=== PATIENT | female | born 1960 | race African-American/Black ===

== ENCOUNTER 2016-07-23 17:52 | Emergency (ER) | payer MEDICAID ==
[~2016-07-23] VITALS: Ht 162.6 cm; Wt 63.0 kg
[~2016-07-23 17:52] MED LIST: DIAZ5TAB PO; INSULIN SHOT; NAPR220T70 PO; blood pressure med; diabetes med
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
[2016-07-23] MEDS ORDERED: HYDROCODON/IBUPROFEN 7.5/200MG TABLET. PO ONE (18:30)
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
[2016-07-23] MEDS ORDERED: MAGNESIUM HYDROXIDE 2,400 MG/30 ML ORAL.SUSP. PO ONE (19:45)
[2016-07-23] MEDS ORDERED: HYDR-79 PO (19:53)
[2016-07-23] MEDS ORDERED: CYCL5TAB PO (19:53)
[2016-07-23 20:10] VITALS: BP 154/98
[2016-07-23] MEDS ORDERED: DIPHENHYDRAMINE HCL 25 MG CAPSULE PO ONE (20:15)
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
== END 2016-07-23 20:10 | disposition home or self-care (01) ==
LOC: ER 17:52
DX: S46.001A Unspecified injury of muscle(s) and tendon(s) of the rotator cuff of right shoulder, initial encounter (principal); M62.838 Other muscle spasm; E04.1 Nontoxic single thyroid nodule; I10 Essential (primary) hypertension; E11.9 Type 2 diabetes mellitus without complications; M19.90 Unspecified osteoarthritis, unspecified site; M79.7 Fibromyalgia; V49.9XXA Car occupant (driver) (passenger) injured in unspecified traffic accident, initial encounter; Y93.89 Activity, other specified; Y99.8 Other external cause status; Y92.89 Other specified places as the place of occurrence of the external cause
CPT/HCPCS: 71020; 72125; 73030; 74020; 99284; Q0163

== ENCOUNTER 2017-01-20 00:02 | Inpatient (IN) | payer SELFPAY ==
[~2017-01-20] VITALS: Ht 163.8 cm; Wt 63.0 kg
[~2017-01-20 00:02] MED LIST changes: +CYCL5TAB PO; +HYDR-79 PO
[2017-01-20] MEDS ORDERED: ADENOSINE 6 MG/2 ML VIAL IV ONE ×2 (00:45)
--- NOTE | 2017-01-20 00:45 | PHYS DOC ---
Past History Past Medical History: Arthritis, Diabetes, Hypertension Past Surgical History: Tubal ligation, Other Alcohol Use: Occasionally Drug Use: None Adult General Chief Complaint Chief Complaint: CHEST PAIN HPI HPI Patient is a 57 year old F who presents with chest pain and rapid heart rate. Patient states approximately 2 hours ago her heart rate increased and she's developed chest pain. Patient denies any cardiac history such as bypass or stents. Patient does states she has hypertension and diabetes however is noncompliant with her medication secondary to financial issues. Patient has history of smoking but states she does not currently smoke. Patient denies any fevers. Patient denies any nausea/vomiting/diarrhea. Patient is no other complaints. Review of Systems Review of Systems GEN: Denies fevers, chills, sweats HEENT: Denies blurred vision, sore throat CV: Chest pain and elevated heart rate RESP: Denies shortness of air, cough GI: Denies n/v/d NEURO: Denies confusion, dizziness MSK: Denies weakness, joint pain/swelling Allergies Allergies Allergies Coded Allergies Type Severity Reaction Last Updated Verified No Known Drug Allergies 11/23/15 No Physical Exam Physical Exam GEN.: Moderate distress. Alert and oriented. HEENT: Head is normocephalic, atraumatic NECK: Supple. LUNGS: CTAB. HEART: Tachycardia, S1, S2 present. Peripheral pulses intact ABDOMEN: Soft, nontender. Positive bowel sounds. EXTREMITIES: Without any cyanosis. NEUROLOGIC: Normal speech, normal tone PSYCHIATRIC: Normal affect, normal mood. SKIN: No ulcerations Current Patient Data Vital Signs Laboratory Tests Test 01/20/17 00:45 01/20/17 02:00 White Blood Count 7.8 x10^3/uL Red Blood Count 5.09 x10^6/uL Hemoglobin 14.5 g/dL Hematocrit 42.6 % Mean Corpuscular Volume 84 fL Mean Corpuscular Hemoglobin 28 pg Mean Corpuscular Hemoglobin Concent 34 g/dL Red Cell Distribution Width 13.5 % Platelet Count 251 x10^3/uL Neutrophils (%) (Auto) 52 % Lymphocytes (%) (Auto) 40 % Monocytes (%) (Auto) 6 % Eosinophils (%) (Auto) 1 % Basophils (%) (Auto) 0 % Neutrophils # (Auto) 4.1 x10^3uL Lymphocytes # (Auto) 3.1 x10^3/uL Monocytes # (Auto) 0.5 x10^3/uL Eosinophils # (Auto) 0.1 x10^3/uL Basophils # (Auto) 0.0 x10^3/uL Sodium Level 137 mmol/L Potassium Level 3.7 mmol/L Chloride Level 99 mmol/L Carbon Dioxide Level 27 mmol/L Anion Gap 11 Blood Urea Nitrogen 13 mg/dL Creatinine 0.8 mg/dL Estimated GFR (Cockcroft-Gault) 89.8 BUN/Creatinine Ratio 16 Glucose Level 399 mg/dL Calcium Level 9.8 mg/dL Total Bilirubin 0.3 mg/dL Aspartate Amino Transf (AST/SGOT) 21 U/L Alanine Aminotransferase (ALT/SGPT) 26 U/L Alkaline Phosphatase 105 U/L Troponin I Quantitative 0.022 ng/mL Total Protein 7.5 g/dL Albumin 3.9 g/dL Albumin/Globulin Ratio 1.1 Urine Collection Type Unknown Urine Color Yellow Urine Clarity Clear Urine pH 7.0 Urine Specific [employer] 1.015 Urine Protein Neg Urine Glucose (UA) >=1000 mg/dL Urine Ketones (Stick) Neg mg/dL Urine Blood Neg Urine Nitrite Neg Urine Bilirubin Neg Urine Urobilinogen Dipstick 0.2 mg/dL Urine Leukocyte Esterase Neg Urine RBC 0 /HPF Urine WBC Occ /HPF Urine Squamous Epithelial Cells Occ /LPF Urine Bacteria 0 /HPF Urine Opiates Screen Neg Urine Methadone Screen Neg Urine Barbiturates Neg Urine Phencyclidine Screen Neg Urine Amphetamine/Methamphetamine Neg Urine Benzodiazepines Screen Neg Urine Cocaine Screen Neg Urine Cannabinoids Screen Neg Urine Ethyl Alcohol Neg Current Medications Medications (Trade) Dose Ordered Sig/Jorden Route PRN Reason Start Time Stop Time Status Last Admin Dose Admin Adenosine (Adenocard) 6 mg 1X ONCE IV 01/20/17 00:45 01/20/17 00:46 DC Adenosine (Adenocard) 12 mg 1X ONCE IV 01/20/17 00:45 01/20/17 00:46 DC EKG EKG 0032: EKG shows SVT rate of 174 no STEMI 0107: Repeat EKG shows normal sinus rhythm rate of 93 no STEMI[] Radiology/Procedures Radiology/Procedures Chest x-ray NAD[] Course & Med Decision Making Course & Med Decision Making Pertinent Labs and Imaging studies reviewed. (See chart for details) ED course: Patient was seen and examined emergency room cardiac workup was ordered along with adenosine to convert as CT 0100: I had patient vagal down in which she spontaneously converted into normal sinus rhythm and a repeat EKG was done. 0230: Patient was reevaluated and still complaining of left-sided chest pain 0245: Discussed CC/HP/PMH with Dr. Almazan and recommends admit [] MDM: After reviewing the chart, CC/HPI/PMH, physical exam, [lab results], [ radiological results], I do not believe the patient is having a STEMI, PE ( Wells score 0), and low suspicion for acute thoracic aortic dissection. Given the patient's cardiac risk factors and persistent left-sided chest pain we'll make the patient for further evaluation and management. [] Dragon Disclaimer Dragon Disclaimer This chart was dictated in whole or in part using Voice Recognition software in a busy, high-work load, and often noisy Emergency Department environment. It may contain unintended and wholly unrecognized errors or omissions. Departure Departure: Impression: Primary Impression: SVT (supraventricular tachycardia) Additional Impressions: Chest pain Hyperglycemia Disposition: 09 ADMITTED INPATIENT Admitting Physician: Citlaly Almazan Condition: STABLE Referrals: PCP,NO (PCP) Problem Qualifiers JAIMIE NEVES DO Jan 20, 2017 00:45
[2017-01-20 01:12] LABS: BASO % 0 % (0-3); EOS # 0.1 x10^3/uL (0.0-0.7); EOS % 1 % (0-3); HEMATOCRIT 42.6 % (36.0-47.0); HEMOGLOBIN 14.5 g/dL (12.0-15.5); LYMPH # 3.1 x10^3/uL (1.0-4.8); LYMPH % 40 % (24-48); MEAN CORPUSCULAR HEMOGLOBIN 28 pg (25-35); MEAN CORPUSCULAR HGB CONC 34 g/dL (31-37); MEAN CORPUSCULAR VOLUME 84 fL (79-100); MONO # 0.5 x10^3/uL (0.0-1.1); MONO % 6 % (0-9); NEUT # 4.1 x10^3uL (1.8-7.7); NEUT % 52 % (31-73); PLATELET COUNT 251 x10^3/uL (140-400); RED BLOOD COUNT 5.09 x10^6/uL (3.50-5.40); RED CELL DISTRIBUTION WIDTH 13.5 % (11.5-14.5); WHITE BLOOD COUNT 7.8 x10^3/uL (4.0-11.0)
[2017-01-20 01:20] LABS: ALBUMIN 3.9 g/dL (3.4-5.0); ALBUMIN/GLOBULIN RATIO 1.1 (1.0-1.7); CALCIUM 9.8 mg/dL (8.5-10.1); CREATININE 0.8 mg/dL (0.6-1.0); GFR 89.8; POTASSIUM 3.7 mmol/L (3.5-5.1); TOTAL BILIRUBIN 0.3 mg/dL (0.2-1.0); TOTAL PROTEIN 7.5 g/dL (6.4-8.2)
[2017-01-20 02:27] LABS: BACTERIA,URINE 0 /HPF (0-FEW); BARBITURATES NEG (NEG); BENZODIAZEPINES NEG (NEG); BILIRUBIN,URINE NEG (NEG); CANNABINOIDS NEG (NEG); CLARITY,URINE CLEAR; COCAINE NEG (NEG); COLOR,URINE YELLOW; GLUCOSE,URINE >=1000 mg/dL (NEG); METHADONE NEG (NEG); NITRITE,URINE NEG (NEG); OPIATES NEG (NEG); PHENCYCLIDINE NEG (NEG); RBC,URINE 0 /HPF (0-2); SQUAMOUS EPITHELIAL CELL,UR OCC /LPF; UROBILINOGEN,URINE 0.2 mg/dL (0.2 mg/dL); WBC,URINE OCC /HPF (0-4)
[2017-01-20 02:28] LABS: AMPHETAMINE/METHAMPHETAMINE NEG (NEG)
[2017-01-20] MEDS ORDERED: MORPHINE SULFATE 4 MG/ML DISP.SYRIN. IV PRN (02:45)
[2017-01-20] MEDS ORDERED: NITROGLYCERIN SUBLINGUAL 0.4 MG BOTTLE OF 25. SL PRN (02:45)
[2017-01-20] MEDS ORDERED: ONDANSETRON PF 4 MG/2 ML VIAL. IV PRN (02:45)
[2017-01-20] MEDS ORDERED: ACETAMINOPHEN 325 MG TABLET PO PRN (02:45)
[2017-01-20 03:48] VITALS: BP 131/90
[2017-01-20 03:49] VITALS: BP 131/90
[2017-01-20] MEDS ORDERED: ASPIRIN 81 MG TAB.CHEW PO ONE (06:00)
[2017-01-20] MEDS ORDERED: PNEUMOCOCCAL VAX SCREEN. MC PRN (06:45)
[2017-01-20] MEDS ORDERED: Influenza vaccine per PROTOCOL. MC PRN (06:45)
--- NOTE | 2017-01-20 07:46 | RAD ---
Indication chest pain. A single view of the chest was obtained. Comparison is made to a study 07/23/2016. The heart and pulmonary vessels appear normal. The lungs are clear. There has not been a significant change when compared to the previous exam. IMPRESSION: No acute or focal process. No significant change
[2017-01-20] MEDS ORDERED: MORPHINE SULFATE 20 MG/ML CONC SOLUTION. SL PRN (08:15)
[2017-01-20] MEDS ORDERED: LORazepam INTENSOL 2 MG/ML BOTTLE SL PRN (08:15)
[2017-01-20] MEDS ORDERED: SCOPOLAMINE 1.5MG PATCH. TD SCH (08:15)
[2017-01-20] MEDS ORDERED: FLU VACC QS2017-18 (36MOS+)/PF 0.5 ML SYRINGE. VAX IM ONE (09:00)
[2017-01-20] MEDS ORDERED: PNEUMOC CONJ VACC 23-VALENT 0.5 ML VIAL. VAX IM ONE (09:00)
[2017-01-20] MEDS ORDERED: DEXTROSE 50% 25 GM / 50ML DISP.SYRIN. IV PRN (09:15)
[2017-01-20] MEDS ORDERED: INSULIN ASPART 300 UNITS/3 ML INSULN.PEN SQ ONE (09:30)
--- NOTE | 2017-01-20 09:38 | PDOC2 ---
LYLANAVEED Khushi MUTUEL TELLER 01/20/17 0938: CONSULT Date of Admission DATE: 01/20/17 TIME: 09:33 Reason for Consult: SVT, Elevated trop Problem List Problems Medical Problems: (1) Chest pain Status: Acute (2) Hyperglycemia Status: Acute (3) SVT (supraventricular tachycardia) Status: Acute History of Present Illness Ms Muñoz is a 57 year old female with a history of hypertension and diabetes mellitus. She presents with complaints of palpitations and heart racing that started while she was eating dinner last pm. She reports sudden onset of rapid heart rate with associated chest pressure and dyspnea. She drank some cold water and lay down with out effect. She says she then began to have lightheadedness and nausea in addition to her other symptoms so decided to seek treatment. On arrival she was noted to be in SVT with heart rate in the 170's. She was given adenosine which successfully converted her to sinus rhythm. She has remained in sinus rhythm since that time. She denies any prior episodes of palpitations or history of arrhythmias. She reports progressive fatigue and dyspnea on exertion over the last year. She is able to climb one flight of stairs with significant fatigue and dyspnea when she is finished. She says this has gotten worse over the last one year. She denies exertional chest pain. She does report an episode of chest pain with radiation to her arm and back about 2 weeks ago. She reports this was increased with lifting or bending over and lasted most of the day. She denies congestive symptoms or edema. She denies any syncope. She takes medications for hypertension but is unsure what the medication is. Her daughter is going to bring her medications in. Cardiovascular: HTN CENTRAL NERVOUS SYSTEM: Periperal neuropathy GI: GI bleed Musculoskeletal: Other Rheumatologic: Rheumatoid arthritis Renal/: Other (fibroids) Endocrine: Diabetes Past Surgical History: Tubal Ligation, Other (fatty tumor removal) Family History: Cancer, Diabetes, Hypertension Social History remote history of tobacco use, drinks 1-2 beers daily, no illicit drug use Current Medications Current Medications Adenosine (Adenocard) 6 mg 1X ONCE IV ; Start 01/20/17 at 00:45; Stop at 00:46; Status DC Adenosine (Adenocard) 12 mg 1X ONCE IV ; Start 01/20/17 at 00:45; Stop at 00:46; Status DC Ondansetron HCl (Zofran) 4 mg PRN Q4HRS PRN IV NAUSEA/VOMITING; Start at 02:45; Stop 01/21/17 at 02:44 Morphine Sulfate (Morphine 4mg Syringe) 4 mg PRN Q2HR PRN IV PAIN; Start 01/20 at 02:45; Stop 01/21/17 at 02:44 Acetaminophen (Tylenol) 650 mg PRN Q4HRS PRN PO FEVER; Start 01/20/17 at 02:45 ; Stop 01/21/17 at 02:44 Nitroglycerin (Nitrostat) 0.4 mg PRN Q5MIN PRN SL CHEST PAIN; Start 01/20/17 at 02:45; Stop 01/21/17 at 02:44 Aspirin (Children'S Aspirin) 324 mg 1X ONCE PO Last administered on t 06:02; Start 01/20/17 at 06:00; Stop 01/20/17 at 06:01; Status DC Pneumococcal Polyvalent Vaccine (Pneumovax 23) 0.5 ml ONCE ONCE VAX IM ; Start 01/20/17 at 09:00; Stop 01/20/17 at 09:01; Status DC Influenza Virus Vaccine Quadrival (Fluarix Quad [id number] Syringe) 0.5 ml ONCE ONCE VAX IM ; Start 01/20/17 at 09:00; Stop 01/20/17 at 09:01; Status DC Info (FLU VACCINE per PROTOCOL) 1 ea PRN 1X PRN MC PER PROTOCOL; Start at 06:45; Status Cancel Pneumococcal Polyvalent Vaccine (Do NOT chart on this entry -- for MONITORING) 1 each PRN 1X PRN MC SEE COMMENTS; Start 01/20/17 at 06:45; Status Cancel Lorazepam (Ativan Intensol) 1 mg PRN Q6HRS PRN SL ANXIETY / AGITATION; Start 01/20/17 at 08:15; Status UNV Morphine Sulfate (Roxanol Conc) 4 mg PRN Q3HRS PRN SL PAIN; Start 01/20/17 at 08:15; Status UNV Scopolamine (Transderm-Scop) 1 patch Q3DAYS TD ; Start 01/20/17 at 08:15; Status UNV Insulin Aspart (NovoLOG) 0-5 UNITS QIDACHS SQ ; Start 01/20/17 at 11:30 Dextrose 12.5 gm PRN Q15MIN PRN IV SEE COMMENTS; Start 01/20/17 at 09:15 Insulin Aspart (NovoLOG) 4 units 1X ONCE SQ ; Start 01/20/17 at 09:30; Stop 01/20/17 at 09:31; Status DC Active Scripts Active Cyclobenzaprine Hcl 5 Mg Tablet 5 Mg PO TID PRN PRN Hydrocodone-Ibuprofen 7.5-200 (Hydrocodone/Ibuprofen) 1 Each Tablet 1 Tab PO PRN Q6HRS PRN Valium (Diazepam) 5 Mg Tablet 5 Mg PO Q12HR PRN Reported Aleve (Naproxen Sodium) 220 Mg Tablet 220 Mg PO [diabetes med] Unknown Dose [insulin shot] Unknown Dose [blood pressure med] Allergies: Coded Allergies: No Known Drug Allergies (Unverified , 11/23/15) Review of System as per HPI or negative General: Alert, Oriented X3, Cooperative, No acute distress HEENT: Atraumatic, EOMI, Other (no bruits, thyroid enlargement) Lungs: Clear to auscultation, Normal air movement Heart: Regular rate, Normal S1, Normal S2, Other (no significant murmurs, no gallops, clicks or rubs) Abdomen: Normal bowel sounds, Soft, No tenderness Extremities: No clubbing, No cyanosis, No edema, Normal pulses Neuro: Normal speech, Strength at 5/5 X4 ext Psych/Mental Status: Mental status NL VITALS Vital Signs Date Time Temp Pulse Resp B/P (MAP) Pulse Ox O2 Delivery O2 Flow Rate FiO2 01/20/17 07:15 Room Air 01/20/17 03:49 98.5 83 18 131/90 (104) 98 Labs Laboratory Tests Test 01/20/17 00:45 01/20/17 02:00 01/20/17 07:11 01/20/17 07:32 White Blood Count 7.8 x10^3/uL (4.0-11.0) Red Blood Count 5.09 x10^6/uL (3.50-5.40) Hemoglobin 14.5 g/dL (12.0-15.5) Hematocrit 42.6 % (36.0-47.0) Mean Corpuscular Volume 84 fL (79-100) Mean Corpuscular Hemoglobin 28 pg (25-35) Mean Corpuscular Hemoglobin Concent 34 g/dL (31-37) Red Cell Distribution Width 13.5 % (11.5-14.5) Platelet Count 251 x10^3/uL (140-400) Neutrophils (%) (Auto) 52 % (31-73) Lymphocytes (%) (Auto) 40 % (24-48) Monocytes (%) (Auto) 6 % (0-9) Eosinophils (%) (Auto) 1 % (0-3) Basophils (%) (Auto) 0 % (0-3) Neutrophils # (Auto) 4.1 x10^3uL (1.8-7.7) Lymphocytes # (Auto) 3.1 x10^3/uL (1.0-4.8) Monocytes # (Auto) 0.5 x10^3/uL (0.0-1.1) Eosinophils # (Auto) 0.1 x10^3/uL (0.0-0.7) Basophils # (Auto) 0.0 x10^3/uL (0.0-0.2) Sodium Level 137 mmol/L (136-145) Potassium Level 3.7 mmol/L (3.5-5.1) Chloride Level 99 mmol/L (98-107) Carbon Dioxide Level 27 mmol/L (21-32) Anion Gap 11 (6-14) Blood Urea Nitrogen 13 mg/dL (7-20) Creatinine 0.8 mg/dL (0.6-1.0) Estimated GFR (Cockcroft-Gault) 89.8 BUN/Creatinine Ratio 16 (6-20) Glucose Level 399 mg/dL (70-99) Calcium Level 9.8 mg/dL (8.5-10.1) Total Bilirubin 0.3 mg/dL (0.2-1.0) Aspartate Amino Transf (AST/SGOT) 21 U/L (15-37) Alanine Aminotransferase (ALT/SGPT) 26 U/L (14-59) Alkaline Phosphatase 105 U/L (46-116) Troponin I Quantitative 0.022 ng/mL (0-0.055) 0.099 ng/mL (0-0.055) Total Protein 7.5 g/dL (6.4-8.2) Albumin 3.9 g/dL (3.4-5.0) Albumin/Globulin Ratio 1.1 (1.0-1.7) Urine Collection Type Unknown Urine Color Yellow Urine Clarity Clear Urine pH 7.0 Urine Specific [place] 1.015 Urine Protein Neg (NEG-TRACE) Urine Glucose (UA) >=1000 mg/dL (NEG) Urine Ketones (Stick) Neg mg/dL (NEG) Urine Blood Neg (NEG) Urine Nitrite Neg (NEG) Urine Bilirubin Neg (NEG) Urine Urobilinogen Dipstick 0.2 mg/dL (0.2 mg/dL) Urine Leukocyte Esterase Neg (NEG) Urine RBC 0 /HPF (0-2) Urine WBC Occ /HPF (0-4) Urine Squamous Epithelial Cells Occ /LPF Urine Bacteria 0 /HPF (0-FEW) Urine Opiates Screen Neg (NEG) Urine Methadone Screen Neg (NEG) Urine Barbiturates Neg (NEG) Urine Phencyclidine Screen Neg (NEG) Urine Amphetamine/Methamphetamine Neg (NEG) Urine Benzodiazepines Screen Neg (NEG) Urine Cocaine Screen Neg (NEG) Urine Cannabinoids Screen Neg (NEG) Urine Ethyl Alcohol Neg (NEG) Glucose (Fingerstick) 266 mg/dL (70-99) Images EKG SVT / AVNRT EKG sinus rhythm, ASMI age undetermined, non specific st/t abn Assessment/Plan 1. 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 Suggest beta blockers for rhythm and HTN control. 2. elevated trop - likely secondary to #1. Monitor for any further increase. 3. abnormal EKG - no acute ischemic changes. 4. progressive fatigue and decreased functional capacity - ? anginal equivalent. In light of this and risk factors, will plan for MPI in am. 5. hypertension - controlled currently. Await home medication list and adjust appropriately in light of #1. 6. diabetes mellitus - mgmt per PCP Problems: KIKO RAYMOND MD 01/20/17 1530: CONSULT Allergies: Coded Allergies: No Known Drug Allergies (Unverified , 11/23/15) Assessment/Plan Patient seen and examined Episode of tachycardia. Probable SVT. Will continue on telemetry and consider beta blockers. Elevated troponin. Probably secondary to demand ischemia secondary to tachyarrhythmias. However the patient also has a mildly abnormal EKG. She reports symptoms of progressive fatigue. Patient has risk factors for hypertension and diabetes. Proceed with present treatments and check a stress test in the morning. Hypertension. Adjusting medications as needed. Diabetes mellitus. As per the primary service. Thank you for allowing us to participate in the care of your patient. Problems: NAVEED ARITA APRN Jan 20, 2017 09:38 KIKO RAYMOND MD Jan 20, 2017 15:30
--- NOTE | 2017-01-20 09:54 | EKG ---
[facility] [address] [place] [address] Test Date: 2017-01-20 Test Time: 00:32:41 Pat Name: CLAUS BLACKMAN Department: Room: Gender: F Territory Supervisor: : 1960 Requested By: JAIMIE NEVES Order Number: [id number] Reading MD: Measurements Intervals [place] Rate: P: [place]: QRS: QRSD: T: QT: QTc: Interpretive Statements
--- NOTE | 2017-01-20 09:56 | EKG ---
[facility] [address] [place] [address] Test Date: 2017-01-20 Test Time: 01:07:40 Pat Name: CLAUS BLACKMAN Department: Room: Gender: F Professor Of Surgery: : 1960 Requested By: JAIMIE NEVES Order Number: [id number] Reading MD: Measurements Intervals [place] Rate: P: [place]: QRS: QRSD: T: QT: QTc: Interpretive Statements
[2017-01-20 10:49] VITALS: BP 115/80
[2017-01-20] MEDS: INSULIN ASPART 300 UNITS/3 ML INSULN.PEN SQ SCH ×3 (12:03→20:16)
[2017-01-20] MEDS ORDERED: ATOR10TA60 PO (13:32)
[2017-01-20] MEDS ORDERED: GABA-585 PO (13:32)
[2017-01-20] MEDS ORDERED: AMLO5TAB2 PO (13:32)
[2017-01-20] MEDS ORDERED: LISI1TAB7 PO (13:33)
[2017-01-20] MEDS ORDERED: METF10002 PO (13:33)
[2017-01-20] MEDS ORDERED: ASPI-630 PO (13:33)
[2017-01-20] MEDS ORDERED: MULT1TAB52 PO (13:34)
[2017-01-20] MEDS ORDERED: ASCO500C PO (13:34)
[2017-01-20] MEDS: ASCORBIC ACID 500 MG TABLET PO SCH (14:11)
[2017-01-20] MEDS: ATORVASTATIN CALCIUM 10 MG TABLET. PO SCH (14:11)
[2017-01-20] MEDS: hydroCHLOROthiazide 25 MG TABLET PO SCH (14:11)
[2017-01-20] MEDS: amLODIPine BESYLATE 5 MG TABLET PO SCH (14:11)
[2017-01-20] MEDS: ASPIRIN 81 MG TAB.CHEW PO SCH (14:11)
[2017-01-20] MEDS: LISINOPRIL 20 MG TABLET PO SCH (14:11)
[2017-01-20] MEDS: MULTIVITAMIN with MINERAL TABLET. PO SCH (14:11)
[2017-01-20] MEDS: GABAPENTIN 100 MG CAPSULE. PO SCH ×2 (14:11→20:10)
[2017-01-20] MEDS: metFORMIN 500 MG TABLET PO SCH (17:41)
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
[2017-01-20 19:13] VITALS: BP 105/72
[2017-01-20 22:59] VITALS: BP 106/73
[2017-01-21 00:10] LABS: HEMOGLOBIN A1C 12.3 % (4.8-5.6)
[2017-01-21 05:35] VITALS: BP 114/79
[2017-01-21 06:09] LABS: BASO % 1 % (0-3); EOS # 0.1 x10^3/uL (0.0-0.7); EOS % 2 % (0-3); HEMATOCRIT 43.7 % (36.0-47.0); HEMOGLOBIN 14.8 g/dL (12.0-15.5); LYMPH # 2.3 x10^3/uL (1.0-4.8); LYMPH % 36 % (24-48); MEAN CORPUSCULAR HEMOGLOBIN 29 pg (25-35); MEAN CORPUSCULAR HGB CONC 34 g/dL (31-37); MEAN CORPUSCULAR VOLUME 84 fL (79-100); MONO # 0.4 x10^3/uL (0.0-1.1); MONO % 6 % (0-9); NEUT # 3.5 x10^3uL (1.8-7.7); NEUT % 55 % (31-73); PLATELET COUNT 228 x10^3/uL (140-400); RED BLOOD COUNT 5.18 x10^6/uL (3.50-5.40); RED CELL DISTRIBUTION WIDTH 13.7 % (11.5-14.5); WHITE BLOOD COUNT 6.3 x10^3/uL (4.0-11.0)
[2017-01-21 06:10] LABS: CALCIUM 9.4 mg/dL (8.5-10.1); CREATININE 0.7 mg/dL (0.6-1.0); GFR 104.7; POTASSIUM 4.1 mmol/L (3.5-5.1)
[2017-01-21] MEDS: INSULIN ASPART 300 UNITS/3 ML INSULN.PEN SQ SCH ×2 (07:30→10:16)
[2017-01-21] MEDS ORDERED: REGADENOSON 0.4 MG/5 ML DISP.SYRIN. IV ONE (09:00)
--- NOTE | 2017-01-21 09:30 | PDOC ---
PROGRESS NOTES Diagnosis Problem Problems Medical Problems: (1) Chest pain Status: Acute (2) Hyperglycemia Status: Acute (3) SVT (supraventricular tachycardia) Status: Acute Assessment Problems Medical Problems: (1) Chest pain Status: Acute (2) Hyperglycemia Status: Acute (3) SVT (supraventricular tachycardia) Status: Acute 1. 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 Suggest home monitor 2. elevated trop - likely secondary to #1. No further increase. 3. abnormal EKG - no acute ischemic changes. 4. progressive fatigue and decreased functional capacity - ? anginal equivalent. MPI today. 5. hypertension - controlled. 6. diabetes mellitus - mgmt per PCP Problems: Subjective no new complaints. no chest pain. no dyspnea. Objective Vital Signs Date Time Temp Pulse Resp B/P (MAP) Pulse Ox O2 Delivery O2 Flow Rate FiO2 01/21/17 05:35 98.7 72 18 114/79 (91) 98 Room Air Abdomen: Normal bowel sounds, Soft, No tenderness Heart: Regular rate, Normal S1, Normal S2 Extremities: No clubbing, No edema, Normal pulses General: Alert, Oriented X3, Cooperative, No acute distress Lungs: Clear to auscultation, Normal air movement Neuro: Normal speech, Strength at 5/5 X4 ext Psych/Mental Status: Mental status NL, Mood NL Review of Relevant I have reviewed the following items theodora (where applicable) has been applied. Labs Laboratory Tests Test 01/20/17 00:45 01/20/17 02:00 01/20/17 07:11 01/20/17 07:32 White Blood Count 7.8 x10^3/uL (4.0-11.0) Red Blood Count 5.09 x10^6/uL (3.50-5.40) Hemoglobin 14.5 g/dL (12.0-15.5) Hematocrit 42.6 % (36.0-47.0) Mean Corpuscular Volume 84 fL (79-100) Mean Corpuscular Hemoglobin 28 pg (25-35) Mean Corpuscular Hemoglobin Concent 34 g/dL (31-37) Red Cell Distribution Width 13.5 % (11.5-14.5) Platelet Count 251 x10^3/uL (140-400) Neutrophils (%) (Auto) 52 % (31-73) Lymphocytes (%) (Auto) 40 % (24-48) Monocytes (%) (Auto) 6 % (0-9) Eosinophils (%) (Auto) 1 % (0-3) Basophils (%) (Auto) 0 % (0-3) Neutrophils # (Auto) 4.1 x10^3uL (1.8-7.7) Lymphocytes # (Auto) 3.1 x10^3/uL (1.0-4.8) Monocytes # (Auto) 0.5 x10^3/uL (0.0-1.1) Eosinophils # (Auto) 0.1 x10^3/uL (0.0-0.7) Basophils # (Auto) 0.0 x10^3/uL (0.0-0.2) Sodium Level 137 mmol/L (136-145) Potassium Level 3.7 mmol/L (3.5-5.1) Chloride Level 99 mmol/L (98-107) Carbon Dioxide Level 27 mmol/L (21-32) Anion Gap 11 (6-14) Blood Urea Nitrogen 13 mg/dL (7-20) Creatinine 0.8 mg/dL (0.6-1.0) Estimated GFR (Cockcroft-Gault) 89.8 BUN/Creatinine Ratio 16 (6-20) Glucose Level 399 mg/dL (70-99) Calcium Level 9.8 mg/dL (8.5-10.1) Total Bilirubin 0.3 mg/dL (0.2-1.0) Aspartate Amino Transf (AST/SGOT) 21 U/L (15-37) Alanine Aminotransferase (ALT/SGPT) 26 U/L (14-59) Alkaline Phosphatase 105 U/L (46-116) Troponin I Quantitative 0.022 ng/mL (0-0.055) 0.099 ng/mL (0-0.055) Total Protein 7.5 g/dL (6.4-8.2) Albumin 3.9 g/dL (3.4-5.0) Albumin/Globulin Ratio 1.1 (1.0-1.7) Urine Collection Type Unknown Urine Color Yellow Urine Clarity Clear Urine pH 7.0 Urine Specific Wilson 1.015 Urine Protein Neg (NEG-TRACE) Urine Glucose (UA) >=1000 mg/dL (NEG) Urine Ketones (Stick) Neg mg/dL (NEG) Urine Blood Neg (NEG) Urine Nitrite Neg (NEG) Urine Bilirubin Neg (NEG) Urine Urobilinogen Dipstick 0.2 mg/dL (0.2 mg/dL) Urine Leukocyte Esterase Neg (NEG) Urine RBC 0 /HPF (0-2) Urine WBC Occ /HPF (0-4) Urine Squamous Epithelial Cells Occ /LPF Urine Bacteria 0 /HPF (0-FEW) Urine Opiates Screen Neg (NEG) Urine Methadone Screen Neg (NEG) Urine Barbiturates Neg (NEG) Urine Phencyclidine Screen Neg (NEG) Urine Amphetamine/Methamphetamine Neg (NEG) Urine Benzodiazepines Screen Neg (NEG) Urine Cocaine Screen Neg (NEG) Urine Cannabinoids Screen Neg (NEG) Urine Ethyl Alcohol Neg (NEG) Glucose (Fingerstick) 266 mg/dL (70-99) Hemoglobin A1c 12.3 % (4.8-5.6) Triglycerides Level 36 mg/dL (0-150) Cholesterol Level 114 mg/dL (0-200) LDL Cholesterol, Calculated 57 mg/dL (0-100) VLDL Cholesterol, Calculated 7 mg/dL (0-40) Non-HDL Cholesterol Calculated 64 mg/dL (0-129) HDL Cholesterol 50 mg/dL (40-60) Cholesterol/HDL Ratio 2.0 Thyroid Stimulating Hormone (TSH) 0.804 uIU/mL (0.358-3.740) Test 01/20/17 11:32 01/20/17 13:31 01/20/17 16:33 01/20/17 19:22 Glucose (Fingerstick) 266 mg/dL (70-99) 279 mg/dL (70-99) 287 mg/dL (70-99) Troponin I Quantitative 0.071 ng/mL (0-0.055) Test 01/21/17 05:41 01/21/17 07:08 White Blood Count 6.3 x10^3/uL (4.0-11.0) Red Blood Count 5.18 x10^6/uL (3.50-5.40) Hemoglobin 14.8 g/dL (12.0-15.5) Hematocrit 43.7 % (36.0-47.0) Mean Corpuscular Volume 84 fL (79-100) Mean Corpuscular Hemoglobin 29 pg (25-35) Mean Corpuscular Hemoglobin Concent 34 g/dL (31-37) Red Cell Distribution Width 13.7 % (11.5-14.5) Platelet Count 228 x10^3/uL (140-400) Neutrophils (%) (Auto) 55 % (31-73) Lymphocytes (%) (Auto) 36 % (24-48) Monocytes (%) (Auto) 6 % (0-9) Eosinophils (%) (Auto) 2 % (0-3) Basophils (%) (Auto) 1 % (0-3) Neutrophils # (Auto) 3.5 x10^3uL (1.8-7.7) Lymphocytes # (Auto) 2.3 x10^3/uL (1.0-4.8) Monocytes # (Auto) 0.4 x10^3/uL (0.0-1.1) Eosinophils # (Auto) 0.1 x10^3/uL (0.0-0.7) Basophils # (Auto) 0.0 x10^3/uL (0.0-0.2) Sodium Level 139 mmol/L (136-145) Potassium Level 4.1 mmol/L (3.5-5.1) Chloride Level 102 mmol/L (98-107) Carbon Dioxide Level 30 mmol/L (21-32) Anion Gap 7 (6-14) Blood Urea Nitrogen 11 mg/dL (7-20) Creatinine 0.7 mg/dL (0.6-1.0) Estimated GFR (Cockcroft-Gault) 104.7 Glucose Level 230 mg/dL (70-99) Calcium Level 9.4 mg/dL (8.5-10.1) Glucose (Fingerstick) 253 mg/dL (70-99) Medications Current Medications Adenosine (Adenocard) 6 mg 1X ONCE IV ; Start 01/20/17 at 00:45; Stop at 00:46; Status DC Adenosine (Adenocard) 12 mg 1X ONCE IV ; Start 01/20/17 at 00:45; Stop at 00:46; Status DC Ondansetron HCl (Zofran) 4 mg PRN Q4HRS PRN IV NAUSEA/VOMITING; Start at 02:45; Stop 01/21/17 at 02:44; Status DC Morphine Sulfate (Morphine 4mg Syringe) 4 mg PRN Q2HR PRN IV PAIN; Start 01/20 at 02:45; Stop 01/21/17 at 02:44; Status DC Acetaminophen (Tylenol) 650 mg PRN Q4HRS PRN PO FEVER; Start 01/20/17 at 02:45 ; Stop 01/21/17 at 02:44; Status DC Nitroglycerin (Nitrostat) 0.4 mg PRN Q5MIN PRN SL CHEST PAIN; Start 01/20/17 at 02:45; Stop 01/21/17 at 02:44; Status DC Aspirin (Children'S Aspirin) 324 mg 1X ONCE PO Last administered on 06:02; Start 01/20/17 at 06:00; Stop 01/20/17 at 06:01; Status DC Pneumococcal Polyvalent Vaccine (Pneumovax 23) 0.5 ml ONCE ONCE VAX IM Last administered on 01/20/17 09:44; Start 01/20/17 at 09:00; Stop 01/20/17 at 09 :01; Status DC Influenza Virus Vaccine Quadrival (Fluarix Quad [id number] Syringe) 0.5 ml ONCE ONCE VAX IM Last administered on 01/20/17 09:45; Start 01/20/17 at 09:00; Stop 01/20/17 at 09:01; Status DC Info (FLU VACCINE per PROTOCOL) 1 ea PRN 1X PRN MC PER PROTOCOL; Start at 06:45; Status Cancel Pneumococcal Polyvalent Vaccine (Do NOT chart on this entry -- for MONITORING) 1 each PRN 1X PRN MC SEE COMMENTS; Start 01/20/17 at 06:45; Status Cancel Lorazepam (Ativan Intensol) 1 mg PRN Q6HRS PRN SL ANXIETY / AGITATION; Start 01/20/17 at 08:15; Status UNV Morphine Sulfate (Roxanol Conc) 4 mg PRN Q3HRS PRN SL PAIN; Start 01/20/17 at 08:15; Status UNV Scopolamine (Transderm-Scop) 1 patch Q3DAYS TD ; Start 01/20/17 at 08:15; Status UNV Insulin Aspart (NovoLOG) 0-5 UNITS QIDACHS SQ Last administered on 01/20/17 20:16; Start 01/20/17 at 11:30 Dextrose 12.5 gm PRN Q15MIN PRN IV SEE COMMENTS; Start 01/20/17 at 09:15 Insulin Aspart (NovoLOG) 4 units 1X ONCE SQ Last administered on 01/20/17 09 :47; Start 01/20/17 at 09:30; Stop 01/20/17 at 09:31; Status DC Amlodipine Besylate (Norvasc) 5 mg DAILY PO Last administered on 01/20/17 14: 11; Start 01/20/17 at 14:00 Aspirin (Children'S Aspirin) 81 mg DAILY PO Last administered on 01/20/17 14: 11; Start 01/20/17 at 14:00 Atorvastatin Calcium (Lipitor) 10 mg DAILY PO Last administered on 01/20/17 14:11; Start 01/20/17 at 14:00 Gabapentin (Neurontin) 100 mg TID PO Last administered on 01/20/17 20:10; Start 01/20/17 at 14:00 Ascorbic Acid (Vitamin C) 500 mg DAILY PO Last administered on 01/20/17 14:11 ; Start 01/20/17 at 14:00 Lisinopril (Prinivil) 20 mg DAILY PO Last administered on 01/20/17 14:11; Start 01/20/17 at 14:00 Metformin HCl (Glucophage) 1,000 mg BIDWMEALS PO Last administered on 17:41; Start 01/20/17 at 17:00 Multivitamins/ Calcium (Thera-M Plus) 1 tab DAILY PO Last administered on 01/20 14:11; Start 01/20/17 at 14:00 Hydrochlorothiazide (Hydrodiuril) 25 mg DAILY PO Last administered on 14:11; Start 01/20/17 at 14:00 Regadenoson (Lexiscan) 0.4 mg 1X ONCE IV Last administered on 01/21/17 09:06 ; Start 01/21/17 at 09:00; Stop 01/21/17 at 09:01; Status DC Active Scripts Active Reported Vitamin C (Ascorbic Acid) 500 Mg Capsule.er 500 Mg PO DAILY Multivitamins (Multivitamin) 1 Each Tablet 1 Tab PO DAILY Aspirin 81 Mg Tab.chew 81 Mg PO DAILY Lisinopril-Hctz 20-25 Mg Tab (Lisinopril/Hydrochlorothiazide) 1 Each Tablet 1 Tab PO DAILY Metformin Hcl 1,000 Mg Tablet 1 Tab PO BID Atorvastatin Calcium 10 Mg Tablet 1 Tab PO DAILY Amlodipine Besylate 5 Mg Tablet 5 Mg PO DAILY Gabapentin 100 Mg Capsule 100 Mg PO TID Vitals/I & O Vital Sign - Last 24 Hours 01/20/17 01/20/17 01/20/17 01/20/17 10:49 14:11 14:11 15:39 Temp 98.4 Pulse 78 78 78 87 Resp 20 B/P (MAP) 115/80 (92) 115/80 115/80 Pulse Ox 96 O2 Delivery Room Air Room Air 01/20/17 01/20/17 01/20/17 01/21/17 19:10 19:13 22:59 05:35 Temp 98.6 98.5 98.7 Pulse 81 75 72 Resp 18 20 18 B/P (MAP) 105/72 (83) 106/73 (84) 114/79 (91) Pulse Ox 99 98 98 O2 Delivery Room Air Room Air Room Air Room Air NAVEED ARITA APRN Jan 21, 2017 09:30
--- NOTE | 2017-01-21 10:02 | CARD ---
APPROVED REPORT EXAM: Two-dimensional and M-mode echocardiogram with Doppler and color Doppler. Other Information Quality : Excellent INDICATION Hypertension/HCVD Chest Pain Elevated Troponin, SVT 2D DIMENSIONS RVDd2.8 (2.9-3.5cm)Left Atrium(2D)2.6 (1.6-4.0cm) IVSd0.9 (0.7-1.1cm)Aortic Root(2D)2.8 (2.0-3.7cm) LVDd3.6 (3.9-5.9cm)LVOT Diameter2.0 (1.8-2.4cm) PWd1.0 (0.7-1.1cm)LVDs1.2 (2.5-4.0cm) FS (%) 65.9 %SV51.5 ml LVEF(%)60.0 (>50%) Aortic Valve AoV Peak Shaheen.123.9cm/sAoV VTI21.6cm AO Peak GR.6.1mmHgLVOT Peak Shaheen.129.3cm/s LVOT VTI 23.92cmAO Mean GR.5mmHg QUINTON (VMAX)3.97bv8JUH (VTI)3.32cm2 Mitral Valve MV E Hopvimho92.8cm/sMV DECEL TUPE247rf MV A Hcsudnjz03.0cm/sE/A Ratio0.6 Tricuspid Valve TR P. Fmsovjrc104ij/sTR Peak Gr.16mmHg Pulmonary Vein S1 Exvdyugt20.5cm/sD2 Xudsomqa55.2cm/s LEFT VENTRICLE The left ventricle is normal size. There is normal left ventricular wall thickness. The left ventricu lar systolic function is normal. The Ejection Fraction is 60-65%. There is normal LV segmental wall m otion. Transmitral Doppler flow pattern is Grade I-abnormal relaxation pattern. RIGHT VENTRICLE The right ventricle is normal size. The right ventricular systolic function is normal. ATRIA The left atrium size is normal. The right atrium size is normal. The interatrial septum is intact wit h no evidence for an atrial septal defect or patent foramen ovale as noted on 2-D or Doppler imaging. AORTIC VALVE The aortic valve is normal in structure and function. Doppler and Color Flow revealed no significant aortic regurgitation. There is no significant aortic valvular stenosis. MITRAL VALVE The mitral valve is normal in structure and function. There is no evidence of mitral valve prolapse. There is no mitral valve stenosis. Doppler and Color Flow revealed no mitral valve regurgitation note d. TRICUSPID VALVE The tricuspid valve is normal in structure and function. Doppler and Color Flow revealed trace tricus pid regurgitation. There is no tricuspid valve stenosis. PULMONIC VALVE The pulmonary valve is normal in structure and function. Doppler and Color Flow revealed no pulmonic valvular regurgitation. There is no pulmonic valvular stenosis. GREAT VESSELS The aortic root is normal in size. The ascending aorta is normal in size. The IVC is normal in size a nd collapses >50% with inspiration. PERICARDIAL EFFUSION There is no evidence of significant pericardial effusion. Critical Notification Critical Value: No <Conclusion> The left ventricular systolic function is normal. The Ejection Fraction is 60-65%. There is normal LV segmental wall motion. Transmitral Doppler flow pattern is Grade I-abnormal relaxation pattern. Doppler and Color Flow revealed trace tricuspid regurgitation. There is no evidence of significant pericardial effusion.
[2017-01-21] MEDS: ATORVASTATIN CALCIUM 10 MG TABLET. PO SCH (10:09)
[2017-01-21] MEDS: hydroCHLOROthiazide 25 MG TABLET PO SCH (10:09)
[2017-01-21] MEDS: metFORMIN 500 MG TABLET PO SCH (10:09)
[2017-01-21] MEDS: LISINOPRIL 20 MG TABLET PO SCH (10:09)
[2017-01-21] MEDS: ASPIRIN 81 MG TAB.CHEW PO SCH (10:09)
[2017-01-21] MEDS: ASCORBIC ACID 500 MG TABLET PO SCH (10:09)
[2017-01-21] MEDS: GABAPENTIN 100 MG CAPSULE. PO SCH (10:09)
[2017-01-21] MEDS: MULTIVITAMIN with MINERAL TABLET. PO SCH (10:09)
[2017-01-21] MEDS: amLODIPine BESYLATE 5 MG TABLET PO SCH (10:10)
[2017-01-21] MEDS ORDERED: INSULIN DETEMIR 300 UNITS/3 ML INSULN.PEN. SQ SCH (10:30)
[2017-01-21 10:53] VITALS: BP 119/72
--- NOTE | 2017-01-21 11:57 | RAD ---
APPROVED REPORT Test Type: Pharmacological Stress Nurse/Tech: INDERJIT Fitzpatrick Test Indications: ABNORMAL EKG WITH ELEVATED TROPONIN Cardiac History: RISK FACTORS- Diabetic - smoker Medications: see EHR Medical History: see EHR Resting ECG: SR Anteroseptal MS age undeterminded - no Acute changes Resting Heart Rate: 83 bpm Resting Blood Pressure: 112/79mmHg Pretest Chest Pain: None Nurse/Tech Notes Consent: The procedure was explained to the patient in lay terms. Informed consent was witnessed. Alfred eout was entered into [employer]. History and Stress Test performed by INDERJIT Fitzpatrick Pharm. Details Pharmacologic stress testing was performed using 0.4mg per 5ml of regadenoson given intravenously ove r 7-10 seconds. POST EXERCISE Reason for Termination: Infusion complete Max HR: 135 bpm Max Blood Pressure: 110/84mmHg Blood Pressure response to exercise: Normal blood pressure response during stress. Chest Pain: No. INTERPRETATION Stress EKG Conclusion: No evidence of ischemia. Imaging Protocol IMAGE PROTOCOL: Rest Tc-99m/stress Tc-99m 1 day Rest: Stress: Viability: Radiopharm.Tc99m HyxwqaxobJp71b Sestamibi Dose11.2mCi 32.4mCi Duration 17min. 12min. Img Date 01/21/2017 01/21/2017 Inj-Img Vygn60jrw. 60min. Rest Admin Site:IV - Right ForearmAdministrator: INDERJIT Fitzpatrick Stress Admin Site: IV - Right ForearmAdministrator: INDERJIT Fitzpatrick STRESS DATA End Diast. Vol.51.0mlAv. Heart Rate78.0bpm LVEDV index BSA1.0mlCardiac Output0.1L/min End Syst. Vol.7.0mlCO Index BSA3.4L/min LVESV index BSA0.0mlMyocardial Iswd311.0g Eject. Ioffbrsv33.0% Stress Rates Pk. Fill Rate2.67EDV/secLVtime Pk. Fill 138.83msec Pk. Empty Rate6.33ESV/secLVtime Pk. Echbn591.70msec 04/06 Pk. Fill1.48EDV/sec Stress Scores Regional WT3.00Summed WT13.00 Regional WM0.00Summed WM1.00 The rest and stress images show normal perfusion, normal contraction and thickening. LV Perf. Quant 17 Seg. SSS0.00 17 Seg. SRS0.00 17 Seg. SDS0.00 Stress Defect Extent (% LAD)0.00Rest Defect Extent (% LAD)0.00Rev. Defect Extent (% LAD)0.00 Stress Defect Extent (% LCX) 0.00Rest Defect Extent (% LCX)0.00Rev. Defect Extent (% LCX)0.00 Stress Defect Extent (% RCA)0.00Rest Defect Extent (% RCA)0.00Rev. Defect Extent (% RCA)0.00 Stress Defect Extent (% ARACELIS)0.00Rest Defect Extent (% ARACELIS)0.00Rev. Defect Extent (% ARACELIS)0.00 Other Information Quality:Good Risk Assessment: Low Risk Conclusion 1. No evidence of EKG changes with stress testing. 2. Normal perfusion at stress/rest. 3. Low risk study. 4. EF > 60%.
[2017-01-21] MEDS ORDERED: INSU100I13 SQ (13:34)
--- NOTE | 2017-01-21 19:19 | DS ---
DATE OF DISCHARGE: 01/21/2017 DISCHARGE DIAGNOSES: 1. Supraventricular tachycardia, likely AVNRT. 2. Elevated troponin, likely secondary to supraventricular tachycardia. 3. Normal Lexiscan. 4. Normal echocardiogram. 5. Hypertension, well controlled. 6. Poorly controlled diabetes with a hemoglobin A1c over 12. HOSPITAL COURSE: A 57-year-old who was admitted to the Emergency Room after an episode of supraventricular tachycardia. She was treated with adenosine in the Emergency Room, which broke the SVT. She did have some chest pressure and such and an elevated troponin and had a Lexiscan, which was negative and her echocardiogram was negative. She was counseled regarding her poorly controlled diabetes and need to follow up with someone either at [facility] or direct primary care where she can afford to be seen as she does not have health insurance at the present time. Her medicines that she have were resumed and she was started on 5 units of Levemir, which she had been on before. She states she could not afford insulin. PHYSICAL EXAMINATION: VITAL SIGNS: On the day of discharge, she was 119/72, pulse 71, respirations 18, pulse ox 98% on room air. PLAN: She was not started on her beta vivi due to her low normal blood pressure and pulse of only 70. She will continue with her lisinopril and hydrochlorothiazide. She was strongly advised to get followup and check her sugars regularly and establish care with either [facility] or direct primary care. COLTEN PENNY DO DR: FLORENCIA/camille JOB#: [id number] / [id number]
== END 2017-01-21 14:14 | disposition home or self-care (01) | DRG 310 ==
LOC: ER 00:02 → 1 SOUTH 02:41
PROVIDERS: ADMIT Family Medicine; ATTEND Family Medicine
DX: I47.1 Supraventricular tachycardia (principal); E11.42 Type 2 diabetes mellitus with diabetic polyneuropathy; E11.65 Type 2 diabetes mellitus with hyperglycemia; M06.9 Rheumatoid arthritis, unspecified; D25.9 Leiomyoma of uterus, unspecified; I10 Essential (primary) hypertension; M19.90 Unspecified osteoarthritis, unspecified site; Z59.9 Problem related to housing and economic circumstances, unspecified; Z83.3 Family history of diabetes mellitus; Z91.14 Patient's other noncompliance with medication regimen; Z82.49 Family history of ischemic heart disease and other diseases of the circulatory system; Z87.891 Personal history of nicotine dependence; Z80.9 Family history of malignant neoplasm, unspecified; Z98.51 Tubal ligation status
CPT/HCPCS: 36415; 71010; 78452; 80048; 80053; 80061; 80307; 81001; 82947; 83036; 84443; 84484; 85025; 90686; 90732; 93005; 93017; 93306; 96374; 96375; 96376; A9500; J1815; J2785; 99285-25; G0479

== ENCOUNTER 2017-07-23 14:41 | Inpatient (IN) | payer SELFPAY ==
[2017-07-23] VITALS (7 sets, daily range): BP systolic 103–149; BP diastolic 57–101
[~2017-07-23] VITALS: Ht 163.8 cm; Wt 65.8 kg
[~2017-07-23 14:41] MED LIST changes: +AMLO5TAB2 PO; +ASCO500C PO; +ASPI-630 PO; +ATOR10TA60 PO; +GABA-585 PO; +INSU100I13 SQ; +LISI1TAB7 PO; +METF10002 PO; +MULT1TAB52 PO
[2017-07-23] MEDS ORDERED: 0.9 % SODIUM CHLORIDE 10 ML DISP.SYRIN. IV PRN (15:00)
--- NOTE | 2017-07-23 15:10 | EKG ---
[address] [address] Test Date: 2017-07-23 Test Time: 14:51:18 Pat Name: CLAUS BLACKMAN Department: Room: Gender: F Battery Hand: THANIA : 1960 Requested By: JARETT AMAYA Order Number: [id number] Reading MD: Measurements Intervals [place] Rate: 180 P: MS: QRS: 37 QRSD: 78 T: -38 QT: 266 QTc: 467 Interpretive Statements SUPRAVENTRICULAR TACHYCARDIA LVH WITH REPOLARIZATION ABNORMALITY ABNORMAL ECG RI6.01 No previous ECG available for comparison
[2017-07-23] MEDS ORDERED: ADENOSINE 6 MG/2 ML VIAL IV ONE ×2 (15:15)
[2017-07-23] MEDS ORDERED: METOPROLOL TARTRATE 5 MG/5 ML VIAL. IV ONE (15:15)
[2017-07-23 15:18] LABS: BASO # 0.1 x10^3/uL (0.0-0.2); BASO % 1 % (0-3); EOS % 1 % (0-3); HEMATOCRIT 42.5 % (36.0-47.0); HEMOGLOBIN 14.7 g/dL (12.0-15.5); LYMPH # 3.4 x10^3/uL (1.0-4.8); LYMPH % 40 % (24-48); MEAN CORPUSCULAR HEMOGLOBIN 29 pg (25-35); MEAN CORPUSCULAR HGB CONC 35 g/dL (31-37); MEAN CORPUSCULAR VOLUME 82 fL (79-100); MONO # 0.7 x10^3/uL (0.0-1.1); MONO % 8 % (0-9); NEUT # 4.5 x10^3uL (1.8-7.7); NEUT % 52 % (31-73); PLATELET COUNT 257 x10^3/uL (140-400); RED BLOOD COUNT 5.17 x10^6/uL (3.50-5.40); RED CELL DISTRIBUTION WIDTH 13.5 % (11.5-14.5); WHITE BLOOD COUNT 8.7 x10^3/uL (4.0-11.0)
--- NOTE | 2017-07-23 15:21 | EKG ---
[address] [address] Test Date: 2017-07-23 Test Time: 15:16:45 Pat Name: CLAUS BLACKMAN Department: Room: Gender: F [employer] Clerk: EMILY : 1960 Requested By: JARETT AMAYA Order Number: [id number] Reading MD: Measurements Intervals [place] Rate: 88 P: 29 [place]: 140 QRS: 1 QRSD: 78 T: 19 QT: 358 QTc: 437 Interpretive Statements SINUS RHYTHM QRS(T) CONTOUR ABNORMALITY CONSISTENT WITH ANTEROSEPTAL INFARCT PROBABLY OLD ABNORMAL ECG RI6.01 No previous ECG available for comparison
--- NOTE | 2017-07-23 15:28 | PHYS DOC ---
Past History Past Medical History: Arthritis, Diabetes, Hypertension Past Surgical History: Tubal ligation, Other Smoking: Non-smoker Alcohol Use: Occasionally Drug Use: None Adult General Chief Complaint Chief Complaint: heart racing HPI HPI 57-year-old female patient with history of hypertension and diabetes mellitus states she finished her work and was at grocery store and felt sudden onset of nausea, palpitation, lightheadedness with shortness of breath without chest pain. Patient complaining of near syncope generalized weakness. Patient states the episode of palpitation was intermittently for the last an hour and states she had the same problem in another occasion and diagnosed with possible heart attack. Patient denies same dehydration, fever and chills, cough and congestion. Patient was able to come to the emergency room by herself. Review of Systems Review of Systems Constitutional: Denies fever or chills [] Eyes: Denies change in visual acuity, redness, or eye pain [] HENT: Denies nasal congestion or sore throat [] Respiratory: Denies cough, reports shortness of breath [] Cardiovascular: No additional information not addressed in HPI [] GI: Denies abdominal pain, vomiting, bloody stools or diarrhea, reports nausea [ ] : Denies dysuria or hematuria [] Musculoskeletal: Denies back pain or joint pain [] Integument: Denies rash or skin lesions [] Neurologic: Denies headache, focal weakness or sensory changes, reports dizziness [] Endocrine: Denies polyuria or polydipsia [] All other systems were reviewed and found to be within normal limits, except as documented in this note. Current Medications Current Medications Current Medications Medications (Trade) Dose Ordered Sig/Jorden Start Time Stop Time Status Last Admin Dose Admin Adenosine (Adenocard) 6 mg 1X ONCE 07/23/17 15:00 07/23/17 15:01 UNV Sodium Chloride (Normal Saline Flush) 10 ml QSHIFT PRN 07/23/17 15:00 UNV Allergies Allergies Allergies Coded Allergies Type Severity Reaction Last Updated Verified No Known Drug Allergies 11/23/15 No Physical Exam Physical Exam Constitutional: Well developed, well nourished, mild distress, non-toxic appearance. [] HENT: Normocephalic, atraumatic, bilateral external ears normal, oropharynx moist, no oral exudates, nose normal. [] Eyes: PERRLA, EOMI, conjunctiva normal, no discharge. [] Neck: Normal range of motion, no tenderness, supple, no stridor. [] Cardiovascular: Tachycardiac at rate of 180, no murmur [] Lungs & Thorax: Bilateral breath sounds clear to auscultation [] Abdomen: Bowel sounds normal, soft, no tenderness, no masses, no pulsatile masses. [] Skin: Warm, dry, no erythema, no rash. [] Back: No tenderness, no CVA tenderness. [] Extremities: No tenderness, no cyanosis, no clubbing, ROM intact, no edema. [] Neurologic: Alert and oriented X 3, normal motor function, normal sensory function, no focal deficits noted. [] Psychologic: Affect normal, judgement normal, mood normal. [] EKG EKG EKG interpreted by me. EKG at 1051 showed SVT at rate of 180, LDH with repolarization abnormality, no acute ST and T wave abnormality Repeat EKG at 1516 showed normal sinus rhythm at rate of 88, poor R-wave progress in anteroseptal leads, no acute ST and T-wave abnormalities[] Radiology/Procedures Radiology/Procedures [] Course & Med Decision Making Course & Med Decision Making Pertinent Labs and Imaging studies reviewed. (See chart for details) Evaluation of patient in ER showed 57-year-old female patient with complaining of sudden onset of palpitation and dizziness and near syncope. Patient had SVT with rate of 180s at arrival to ER with blood pressure of 120s and O2 sat of 100 %. Patient treated with adenosine 6 and 12 mg without instances part but after few minutes her heart rate converted to sinus rhythm with heart rate of 90. Sugar was 177 and magnesium was 1.7. Cardiac enzymes was negative. Dr. Coburn informed at 1530 and agreed with plan of care and admission patient. Dr. Finley informant 1532 and admitted the patient. Dragon Disclaimer Dragon Disclaimer This electronic medical record was generated, in whole or in part, using a voice recognition dictation system. Departure Departure: Impression: Primary Impression: SVT (supraventricular tachycardia) Additional Impressions: Uncontrolled diabetes mellitus Hypomagnesemia Disposition: 09 ADMITTED INPATIENT (At 1532) Condition: IMPROVED Referrals: PCP,NO (PCP) Critical Care Time Critical care time was [60] minutes exclusive of procedures. Problem Qualifiers JARETT AMAYA MD Jul 23, 2017 15:28
[2017-07-23 15:44] LABS: ALBUMIN 4.4 g/dL (3.4-5.0); ALBUMIN/GLOBULIN RATIO 1.2 (1.0-1.7); CALCIUM 9.8 mg/dL (8.5-10.1); CREATININE 0.8 mg/dL (0.6-1.0); GFR 89.8; MAGNESIUM 1.7 mg/dL (1.8-2.4); POTASSIUM 3.9 mmol/L (3.5-5.1); TOTAL BILIRUBIN 0.3 mg/dL (0.2-1.0)
[2017-07-23] MEDS ORDERED: ASPIRIN 81 MG TAB.CHEW PO ONE (16:00)
[2017-07-23] MEDS ORDERED: ASPI-612 PO (17:51)
[2017-07-23] MEDS ORDERED: SITA25TA PO (17:51)
[2017-07-23] MEDS ORDERED: INSU100I27 (17:51)
[2017-07-23] MEDS ORDERED: GABA100C6 PO (17:51)
[2017-07-23] MEDS: metFORMIN 500 MG TABLET PO SCH (19:25)
[2017-07-23] MEDS: GABAPENTIN 100 MG CAPSULE. PO SCH (20:49)
[2017-07-23] MEDS ORDERED: ATORVASTATIN CALCIUM 10 MG TABLET. PO SCH (21:00)
[2017-07-23] MEDS ORDERED: INSULIN GLARGINE 300 UNITS/3 ML INSULN.PEN. SQ SCH (21:00)
[2017-07-24] VITALS (9 sets, daily range): BP systolic 97–128; BP diastolic 65–87
[2017-07-24 07:19] LABS: BASO % 1 % (0-3); EOS # 0.1 x10^3/uL (0.0-0.7); EOS % 1 % (0-3); HEMATOCRIT 41.9 % (36.0-47.0); LYMPH # 2.6 x10^3/uL (1.0-4.8); LYMPH % 44 % (24-48); MEAN CORPUSCULAR HEMOGLOBIN 28 pg (25-35); MEAN CORPUSCULAR HGB CONC 33 g/dL (31-37); MEAN CORPUSCULAR VOLUME 83 fL (79-100); MONO # 0.4 x10^3/uL (0.0-1.1); MONO % 6 % (0-9); NEUT # 2.8 x10^3uL (1.8-7.7); NEUT % 48 % (31-73); PLATELET COUNT 214 x10^3/uL (140-400); RED BLOOD COUNT 5.04 x10^6/uL (3.50-5.40); RED CELL DISTRIBUTION WIDTH 13.6 % (11.5-14.5); WHITE BLOOD COUNT 5.9 x10^3/uL (4.0-11.0)
[2017-07-24 07:41] LABS: ALBUMIN 3.7 g/dL (3.4-5.0); CALCIUM 9.5 mg/dL (8.5-10.1); CREATININE 0.8 mg/dL (0.6-1.0); GFR 89.8; MAGNESIUM 1.6 mg/dL (1.8-2.4); POTASSIUM 3.8 mmol/L (3.5-5.1); TOTAL BILIRUBIN 0.5 mg/dL (0.2-1.0); TOTAL PROTEIN 7.4 g/dL (6.4-8.2)
[2017-07-24] MEDS: metFORMIN 500 MG TABLET PO SCH (08:37)
[2017-07-24] MEDS: GABAPENTIN 100 MG CAPSULE. PO SCH (08:38)
[2017-07-24] MEDS ORDERED: ATORVASTATIN CALCIUM 10 MG TABLET. PO SCH (09:00)
[2017-07-24] MEDS ORDERED: amLODIPine BESYLATE 5 MG TABLET PO SCH (09:00)
[2017-07-24] MEDS ORDERED: LISINOPRIL 20 MG TABLET PO SCH (09:00)
[2017-07-24] MEDS ORDERED: NON FORMULARY ITEM (Lisinopril/Hydrochlorothiazide (Lisinopril-Hctz 20-25 Mg Tab) 1 TAB) PO SCH (09:00)
[2017-07-24] MEDS ORDERED: hydroCHLOROthiazide 25 MG TABLET PO SCH (09:00)
[2017-07-24] MEDS ORDERED: ASPIRIN 81 MG TAB.CHEW PO SCH (09:00)
--- NOTE | 2017-07-24 09:52 | PDOC2 ---
CONSULT Date of Admission DATE: 07/24/17 TIME: 09:51 Reason for Consult: Supraventricular tachycardia Referring Physician: Dr. Finley Chief Complaint Palpitations Source: Chart review, Patient Problem List Problems Medical Problems: (1) Hypomagnesemia Status: Acute (2) SVT (supraventricular tachycardia) Status: Acute (3) Uncontrolled diabetes mellitus Status: Acute History of Present Illness 57-year-old -[place] female with history of paroxysmal supraventricular tachycardia presented with sudden onset of palpitations associated with dizziness, lightheadedness, nausea and mild shortness of breath. She denied any chest pain, orthopnea/PND or syncope. She was found to be in supraventricular tachycardia that converted to sinus rhythm with intravenous adenosine bolus in the emergency room. She presently feels significantly better. She stated that she has not been compliant with her medications due to lack of insurance. Past Medical History Paroxysmal supraventricular tachycardia Hypertension Hyperlipidemia Diabetes mellitus type 2 Rheumatoid arthritis Non-alcoholic steatohepatitis Trigger fingers Past Surgical History Tubal ligation Family History Cancer, diabetes Social History Patient quit smoking 6 years ago and admitted to social intake of alcohol. She denied any drug abuse. Current Medications Current Medications Adenosine (Adenocard) 12 mg 1X ONCE IV Last administered on 07/23/17at 15:18; Start 07/23/17 at 15:15; Stop 07/23/17 at 15:16; Status DC Sodium Chloride (Normal Saline Flush) 10 ml QSHIFT PRN IV AFTER MEDS AND BLOOD DRAWS; Start 07/23/17 at 15:00 Adenosine (Adenocard) 6 mg 1X ONCE IV Last administered on 07/23/17at 15:15; Start 07/23/17 at 15:15; Stop 07/23/17 at 15:16; Status DC Metoprolol Tartrate (Lopressor Vial) 5 mg 1X ONCE IV ; Start 07/23/17 at 15:15 ; Stop 07/23/17 at 15:18; Status DC Aspirin (Children'S Aspirin) 324 mg 1X ONCE PO Last administered on 07/23/17at 16:05; Start 07/23/17 at 16:00; Stop 07/23/17 at 16:02; Status DC Amlodipine Besylate (Norvasc) 5 mg DAILY PO Last administered on 07/24/17at 08: 38; Start 07/24/17 at 09:00 Aspirin (Children'S Aspirin) 81 mg DAILY PO Last administered on 07/24/17at 08: 37; Start 07/24/17 at 09:00 Atorvastatin Calcium (Lipitor) 10 mg QHS PO ; Start 07/23/17 at 21:00; Stop at 22:54; Status DC Gabapentin (Neurontin) 100 mg TID PO Last administered on 07/24/17at 08:38; Start 07/23/17 at 21:00 Insulin Glargine (Lantus) 5 units QHS SQ Last administered on 07/23/17at 21:13; Start 07/23/17 at 21:00 Non-Formulary Medication (Lisinopril/ Hydrochlorothiazide (Lisinopril-Hctz 20- 25 Mg Tab)) 1 tab DAILY PO ; Start 07/24/17 at 09:00; Status UNV Metformin HCl (Glucophage) 1,000 mg BIDWMEALS PO Last administered on at 08:37; Start 07/23/17 at 18:00 Lisinopril (Prinivil) 20 mg DAILY PO Last administered on 07/24/17at 08:37; Start 07/24/17 at 09:00 Hydrochlorothiazide (Hydrodiuril) 25 mg DAILY PO Last administered on at 08:37; Start 07/24/17 at 09:00 Atorvastatin Calcium (Lipitor) 10 mg DAILY PO Last administered on 07/24/17at 08 :37; Start 07/24/17 at 09:00 Active Scripts Active Lantus Solostar (Insulin Glargine,Hum.rec.anlog) 100 Unit/1 Ml Insuln.pen 5 Unit SQ QHS Reported Januvia (Sitagliptin Phosphate) 25 Mg Tablet 25 Mg PO DAILY Aspirin Ec (Aspirin) 81 Mg Tablet.dr 81 Mg PO DAILY Gabapentin 100 Mg Capsule 100 Mg PO TID Levemir Flextouch (Insulin Detemir) 100 Unit/1 Ml Insuln.pen Vitamin C (Ascorbic Acid) 500 Mg Capsule.er 500 Mg PO DAILY LAST DOSE GIVEN: DATE: TODAY TIME: AM NEXT DOSE DUE: DATE: TOMORROW TIME: AM Multivitamins (Multivitamin) 1 Each Tablet 1 Tab PO DAILY LAST DOSE GIVEN: DATE: TODAY TIME: AM NEXT DOSE DUE: DATE: TOMORROW TIME: AM Aspirin 81 Mg Tab.chew 81 Mg PO DAILY LAST DOSE GIVEN: DATE: TODAY TIME: AM NEXT DOSE DUE: DATE: TOMORROW TIME: AM Lisinopril-Hctz 20-25 Mg Tab (Lisinopril/Hydrochlorothiazide) 1 Each Tablet 1 Tab PO DAILY LAST DOSE GIVEN: DATE: TIME: AM NEXT DOSE DUE: DATE: TOMORR TIME: AM Metformin Hcl 1,000 Mg Tablet 1 Tab PO BID LAST DOSE GIVEN: DATE: TIME: WITH BREAKFAST NEXT DOSE DUE: DATE: TIME: WITH DINNER Atorvastatin Calcium 10 Mg Tablet 1 Tab PO DAILY LAST DOSE GIVEN: DATE: TIME: AM NEXT DOSE DUE: DATE: TOMORR TIME: AM Amlodipine Besylate 5 Mg Tablet 5 Mg PO DAILY LAST DOSE GIVEN: DATE: TIME: AM NEXT DOSE DUE: DATE: TIME: AM Gabapentin 100 Mg Capsule 100 Mg PO TID LAST DOSE GIVEN: DATE: TIME: AFTERNOON NEXT DOSE DUE: DATE: TIME: AT BEDTIME Allergies: Coded Allergies: No Known Drug Allergies (Unverified , 11/23/15) PSYCHOLOGICAL ROS: No: Hallucinations Eyes: No: Loss of vision HEENT: No: Epistaxis Respiratory: YES: Shortness of breath, No: Hemoptysis Cardiovascular: yes: Palpitations, No: Chest Pain Gastrointestinal: YES: Nausea, No: Vomiting, Diarrhea Neurological: No: Seizures Skin: No: Rash General: Alert, Oriented X3 HEENT: Atraumatic, PERRLA Lungs: Clear to auscultation Heart: Regular rate Abdomen: Soft Extremities: No edema Psych/Mental Status: Mood NL VITALS Vital Signs Date Time Temp Pulse Resp B/P (MAP) Pulse Ox O2 Delivery O2 Flow Rate FiO2 07/24/17 08:55 80 19 120/76 (91) 100 Room Air 07/23/17 18:48 98.4 07/23/17 16:51 2.0 Labs Laboratory Tests Test 07/23/17 14:50 07/23/17 17:02 07/23/17 18:30 07/23/17 21:07 White Blood Count 8.7 x10^3/uL (4.0-11.0) Red Blood Count 5.17 x10^6/uL (3.50-5.40) Hemoglobin 14.7 g/dL (12.0-15.5) Hematocrit 42.5 % (36.0-47.0) Mean Corpuscular Volume 82 fL (79-100) Mean Corpuscular Hemoglobin 29 pg (25-35) Mean Corpuscular Hemoglobin Concent 35 g/dL (31-37) Red Cell Distribution Width 13.5 % (11.5-14.5) Platelet Count 257 x10^3/uL (140-400) Neutrophils (%) (Auto) 52 % (31-73) Lymphocytes (%) (Auto) 40 % (24-48) Monocytes (%) (Auto) 8 % (0-9) Eosinophils (%) (Auto) 1 % (0-3) Basophils (%) (Auto) 1 % (0-3) Neutrophils # (Auto) 4.5 x10^3uL (1.8-7.7) Lymphocytes # (Auto) 3.4 x10^3/uL (1.0-4.8) Monocytes # (Auto) 0.7 x10^3/uL (0.0-1.1) Eosinophils # (Auto) 0.0 x10^3/uL (0.0-0.7) Basophils # (Auto) 0.1 x10^3/uL (0.0-0.2) Prothrombin Time 11.3 SEC (9.4-11.4) Prothromb Time International Ratio 1.1 (0.9-1.1) Activated Partial Thromboplast Time 25 SEC (23-33) Sodium Level 139 mmol/L (136-145) Potassium Level 3.9 mmol/L (3.5-5.1) Chloride Level 100 mmol/L (98-107) Carbon Dioxide Level 26 mmol/L (21-32) Anion Gap 13 (6-14) Blood Urea Nitrogen 10 mg/dL (7-20) Creatinine 0.8 mg/dL (0.6-1.0) Estimated GFR (Cockcroft-Gault) 89.8 BUN/Creatinine Ratio 13 (6-20) Glucose Level 177 mg/dL (70-99) Calcium Level 9.8 mg/dL (8.5-10.1) Magnesium Level 1.7 mg/dL (1.8-2.4) Total Bilirubin 0.3 mg/dL (0.2-1.0) Aspartate Amino Transf (AST/SGOT) 20 U/L (15-37) Alanine Aminotransferase (ALT/SGPT) 26 U/L (14-59) Alkaline Phosphatase 87 U/L (46-116) Creatine Kinase 156 U/L (26-192) Creatine Kinase MB (Mass) 0.6 ng/mL (0.0-3.6) Creatine Kinase MB Relative Index 0.4 % (0-4) Troponin I Quantitative < 0.017 ng/mL (0-0.055) < 0.017 ng/mL (0-0.055) OQ-Eow-M-Type Natriuretic Peptide 9 pg/mL (0-124) Total Protein 8.0 g/dL (6.4-8.2) Albumin 4.4 g/dL (3.4-5.0) Albumin/Globulin Ratio 1.2 (1.0-1.7) Glucose (Fingerstick) 163 mg/dL (70-99) 278 mg/dL (70-99) Test 07/23/17 21:40 07/24/17 06:53 07/24/17 07:51 Troponin I Quantitative < 0.017 ng/mL (0-0.055) White Blood Count 5.9 x10^3/uL (4.0-11.0) Red Blood Count 5.04 x10^6/uL (3.50-5.40) Hemoglobin 14.0 g/dL (12.0-15.5) Hematocrit 41.9 % (36.0-47.0) Mean Corpuscular Volume 83 fL (79-100) Mean Corpuscular Hemoglobin 28 pg (25-35) Mean Corpuscular Hemoglobin Concent 33 g/dL (31-37) Red Cell Distribution Width 13.6 % (11.5-14.5) Platelet Count 214 x10^3/uL (140-400) Neutrophils (%) (Auto) 48 % (31-73) Lymphocytes (%) (Auto) 44 % (24-48) Monocytes (%) (Auto) 6 % (0-9) Eosinophils (%) (Auto) 1 % (0-3) Basophils (%) (Auto) 1 % (0-3) Neutrophils # (Auto) 2.8 x10^3uL (1.8-7.7) Lymphocytes # (Auto) 2.6 x10^3/uL (1.0-4.8) Monocytes # (Auto) 0.4 x10^3/uL (0.0-1.1) Eosinophils # (Auto) 0.1 x10^3/uL (0.0-0.7) Basophils # (Auto) 0.0 x10^3/uL (0.0-0.2) Sodium Level 140 mmol/L (136-145) Potassium Level 3.8 mmol/L (3.5-5.1) Chloride Level 103 mmol/L (98-107) Carbon Dioxide Level 30 mmol/L (21-32) Anion Gap 7 (6-14) Blood Urea Nitrogen 10 mg/dL (7-20) Creatinine 0.8 mg/dL (0.6-1.0) Estimated GFR (Cockcroft-Gault) 89.8 BUN/Creatinine Ratio 13 (6-20) Glucose Level 205 mg/dL (70-99) Calcium Level 9.5 mg/dL (8.5-10.1) Magnesium Level 1.6 mg/dL (1.8-2.4) Total Bilirubin 0.5 mg/dL (0.2-1.0) Aspartate Amino Transf (AST/SGOT) 15 U/L (15-37) Alanine Aminotransferase (ALT/SGPT) 21 U/L (14-59) Alkaline Phosphatase 72 U/L (46-116) Total Protein 7.4 g/dL (6.4-8.2) Albumin 3.7 g/dL (3.4-5.0) Albumin/Globulin Ratio 1.0 (1.0-1.7) Glucose (Fingerstick) 225 mg/dL (70-99) Assessment/Plan 1. Paroxysmal supraventricular tachycardia: Converted to sinus rhythm with intravenous adenosine bolus in the emergency room. Telemetry did not show any further arrhythmias. We will start flecainide for antiarrhythmic therapy. 2-D echo in January 2017 showed normal LV systolic function and Lexiscan nuclear stress test at that time did not show any significant ischemia. The importance of compliance with medications was reemphasized. 2. Hypertension: Well-controlled 3. Hyperlipidemia: Statins 4. Diabetes mellitus type 2: Treated per IM Thank you for your consultation Problems: MARTELL BARBOZA MD Jul 24, 2017 09:51
[2017-07-24] MEDS ORDERED: FLECAINIDE 50 MG TABLET. PO SCH (10:00)
--- NOTE | 2017-07-24 10:16 | RAD ---
AP chest x-ray History: Palpitations and shortness of breath Comparison: Chest x-ray January 20, 2017. Findings: Heart size normal. Mediastinal silhouette is unremarkable. No pneumothorax, pulmonary opacities or pleural effusions. Thoracic disc osteophytes. Impression: No acute process.
[2017-07-24] MEDS ORDERED: FLEC100T PO (12:32)
--- NOTE | 2017-07-24 13:08 | SSS ---
ADMIT DATE: 07/24/2017 HISTORY OF PRESENT ILLNESS: The patient is a 57-year-old -[place] female patient, who came to the Emergency Room with complaint of sudden onset of nausea, palpitation, lightheadedness and shortness of breath without chest pain. She did complain of near syncope, generalized weakness. She states that the episode was intermittent that lasted an hour and apparently had had similar problem in another occasion where she was admitted to this facility. She denied any nausea, vomiting, diarrhea. Denied any chills, rigors, fever, cough or congestion. She came to the Emergency Room by herself. On further evaluation she was found to have supraventricular tachycardia as well as hypomagnesemia. She apparently was treated with adenosine 6 and 12 mg after which she converted back to sinus rhythm with a heart rate of 90. Her magnesium was found to be the lower side; however, cardiac enzymes were negative. She was seen by Dr. Coburn, who started her on flecainide and was discharged to follow with him as an outpatient. PAST MEDICAL HISTORY: Significant for type 2 diabetes, hypertension, hyperlipidemia and what sounds to be like rheumatoid arthritis. She also said that she has what seemed to be nonalcoholic steatohepatitis and trigger fingers. PAST SURGICAL HISTORY: Significant for tubal ligation, removal of fatty tumor in her back . ALLERGIES: She has no known drug allergies. FAMILY HISTORY: She apparently has 6 sisters, one of them at the age of 42 because of cancer. She has 5 sisters alive. Father in his 50s because of complication of diabetes. Her mother is still alive in her 80s and has seizure disorder. SOCIAL HISTORY: She is , has 3 sons and 3 daughters. She is an ex-smoker, quit 6 years ago. Does drink alcohol occasionally. Does not use any drugs. 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 REVIEW OF SYSTEMS: The patient denied any blurring of vision, cataract, glaucoma or macular degeneration. Denied any earache, tinnitus or sensorineural deafness. Denied nosebleeds, stuffy nose or postnasal drip. Denied any sore throat, sore tongue, toothache, hoarseness of voice or difficulty swallowing. Did complain of unintentional weight loss. Denied any nausea, vomiting, diarrhea or constipation. Denied any hematemesis, melena, hematochezia. Denied any dysuria, frequency or hematuria. Denied any chest pain even with SVT. She denied any shortness of breath, cough, phlegm or hemoptysis. PHYSICAL EXAMINATION: GENERAL: On examining her, she looked well and was clearly in no apparent respiratory distress, pale, but no jaundice, cyanosis, or thyromegaly. No jugular venous distension. No limb edema. VITAL SIGNS: Her heart rate was 70, blood pressure was 111/80, temperature was 98, respiratory rate was 18, and oxygen saturation 100% on room air. HEAD, EYES, EARS, NOSE AND THROAT: Showed normocephalic, atraumatic. NECK: Supple. HEART: Showed normal first and second heart sounds with no gallop, rub or murmur. CHEST: Clear to auscultation. No crepitation or rhonchi. ABDOMEN: Distended, soft, nontender. No guarding or rigidity. No organomegaly. All hernial orifice intact. Bowel sounds normal. NEUROLOGIC: She was awake, alert, responding appropriately. All cranial nerves intact. EXTREMITIES: She moves extremities without difficulty. She ambulates without assistance or assistive devices. LABORATORY DATA: Showed white cell count of 5900, hemoglobin 14, hematocrit 42, MCV 83, and platelet count 214,000. Her chemistry showed that her serum sodium was 140, potassium 3.8, chloride 103, bicarbonate 30, anion gap of 7, BUN 10, creatinine 0.8, estimated GFR of 90 mL per minute. Her glucose was 205, calcium was 9.5, magnesium was 1.6. Total bilirubin, AST, ALT, alkaline phosphatase were normal. Total protein was 7.4, albumin 3.7. Her TSH was 0.578. Her prothrombin time was 11.3, INR 1.1, aPTT was 15. She did have chest x-ray, which basically showed the heart size is normal. Mediastinal silhouette is unremarkable. No pneumothorax, pulmonary opacities or pleural effusion, thoracic disk osteophytes. She was discharged home. She was actually seen by the ingredient scaler helper. We started her on flecainide 50 mg twice a day. Should continue on her ascorbic acid 500 mg daily, aspirin 81 mg once a day, atorvastatin 10 mg once a day, gabapentin 100 mg 3 times a day. She is also on Levemir insulin 5 units at bedtime and lisinopril/hydrochlorothiazide 20/25 one tablet once a day, metformin 1000 mg twice a day, multivitamin 1 tablet once a day, sitagliptin 25 mg daily. Her amlodipine was discontinued. FINAL DISCHARGE DIAGNOSES: 1. Paroxysmal supraventricular tachycardia for which she was started on flecainide. 2. Type 2 diabetes controlled. 3. Hypertension. 4. Hyperlipidemia. 5. Hypomagnesemia. KEYLA TITUS MD DR: AMANDA/camille JOB#: [id number] / [id number]
== END 2017-07-24 13:12 | disposition home or self-care (01) | DRG 310 ==
LOC: ER 14:41 → ICU 16:05
PROVIDERS: ADMIT Internal Medicine; ATTEND Internal Medicine
DX: I47.1 Supraventricular tachycardia (principal); E11.65 Type 2 diabetes mellitus with hyperglycemia; K75.81 Nonalcoholic steatohepatitis (NASH); E83.42 Hypomagnesemia; E78.5 Hyperlipidemia, unspecified; I10 Essential (primary) hypertension; M19.90 Unspecified osteoarthritis, unspecified site; M06.9 Rheumatoid arthritis, unspecified; Z82.0 Family history of epilepsy and other diseases of the nervous system; Z83.3 Family history of diabetes mellitus; Z87.891 Personal history of nicotine dependence; Z91.14 Patient's other noncompliance with medication regimen; Z98.51 Tubal ligation status; Z80.9 Family history of malignant neoplasm, unspecified
CPT/HCPCS: 36415; 71045; 80053; 82553; 82947; 83735; 83880; 84443; 84484; 85025; 85610; 85730; 87641; 93005; J0153; J1815

== ENCOUNTER 2018-05-23 15:12 | Emergency (ER) | payer SELFPAY ==
[~2018-05-23] VITALS: Ht 162.6 cm; Wt 66.0 kg
[~2018-05-23 15:12] MED LIST changes: +AMLO5TAB10 PO; -AMLO5TAB2 PO; +ASPI-612 PO; +FLEC100T PO; +GABA100C6 PO; +HYDR-1179 PO; -HYDR-79 PO; +INSU100I27; -METF10002 PO; +METF10007 PO; +SITA25TA PO
[2018-05-23] MEDS ORDERED: IV NORMAL SALINE 1,000ML 1,000 ML IV ONE (15:30)
[2018-05-23] MEDS ORDERED: ASPIRIN ENTERIC COATED 325 MG TABLET.DR. PO ONE (15:31)
[2018-05-23] MEDS ORDERED: ASPIRIN 325 MG TABLET PO ONE (15:45)
[2018-05-23] MEDS ORDERED: ADENOSINE 6 MG/2 ML VIAL IV ONE (15:45)
--- NOTE | 2018-05-23 15:45 | PHYS DOC ---
Past History Past Medical History: Diabetes, High Cholesterol, Hypertension Past Surgical History: Tubal ligation Smoking: Non-smoker Alcohol Use: Occasionally Drug Use: None Adult General Chief Complaint Chief Complaint: RAPID HEART RATE HPI HPI Patient is a [age] year old [sex] who presents with [] Review of Systems Review of Systems Constitutional: Denies fever or chills [] Eyes: Denies change in visual acuity, redness, or eye pain [] HENT: Denies nasal congestion or sore throat [] Respiratory: Denies cough or shortness of breath [] Cardiovascular: No additional information not addressed in HPI [] GI: Denies abdominal pain, nausea, vomiting, bloody stools or diarrhea [] : Denies dysuria or hematuria [] Musculoskeletal: Denies back pain or joint pain [] Integument: Denies rash or skin lesions [] Neurologic: Denies headache, focal weakness or sensory changes [] Endocrine: Denies polyuria or polydipsia [] All other systems were reviewed and found to be within normal limits, except as documented in this note. Current Medications Current Medications Current Medications Medications (Trade) Dose Ordered Sig/Jorden Start Time Stop Time Status Last Admin Dose Admin Adenosine (Adenocard) 6 mg 1X ONCE 05/23/18 15:45 05/23/18 15:46 Aspirin (Aspirin Enteric Coated) 325 mg STK-MED ONCE 05/23/18 15:31 05/23/18 15:32 DC Aspirin (Anthony Aspirin) 325 mg 1X ONCE 05/23/18 15:45 05/23/18 15:46 Sodium Chloride 1,000 ml @ 1,000 mls/hr 1X ONCE 05/23/18 15:30 05/23/18 16:29 Allergies Allergies Allergies Coded Allergies Type Severity Reaction Last Updated Verified No Known Drug Allergies 05/23/18 No Physical Exam Physical Exam Constitutional: Well developed, well nourished, no acute distress, non-toxic appearance. [] HENT: Normocephalic, atraumatic, bilateral external ears normal, oropharynx moist, no oral exudates, nose normal. [] Eyes: PERRLA, EOMI, conjunctiva normal, no discharge. [] Neck: Normal range of motion, no tenderness, supple, no stridor. [] Cardiovascular:Heart rate regular rhythm, no murmur [] Lungs & Thorax: Bilateral breath sounds clear to auscultation [] Abdomen: Bowel sounds normal, soft, no tenderness, no masses, no pulsatile masses. [] Skin: Warm, dry, no erythema, no rash. [] Back: No tenderness, no CVA tenderness. [] Extremities: No tenderness, no cyanosis, no clubbing, ROM intact, no edema. [] Neurologic: Alert and oriented X 3, normal motor function, normal sensory function, no focal deficits noted. [] Psychologic: Affect normal, judgement normal, mood normal. [] Current Patient Data Vital Signs Vital Signs Date Time Temp Pulse Resp B/P (MAP) Pulse Ox O2 Delivery O2 Flow Rate FiO2 05/23/18 15:27 98.5 178 16 100 Room Air EKG EKG @15:25 SVT with HR of 177 BPM QRS: 72 ms QT/QTc: 268/462 @15:42 after vagal maneuver NSR with HR of 89 BPM QRS: 76 ms QT/QTc: 356/434 ms Radiology/Procedures Radiology/Procedures @1525 Sinus tachycardia at 177bpm, NO ST elevation, Mild ST depression to V2-V6 @1542 NSR at 89bpm, NO ST elevation, Depressions now resolved. S/p vagal maneuvers Course & Med Decision Making Course & Med Decision Making Pertinent Labs and Imaging studies reviewed. (See chart for details) [] Dragon Disclaimer Dragon Disclaimer This electronic medical record was generated, in whole or in part, using a voice recognition dictation system. Departure Departure: Impression: Primary Impression: SVT (supraventricular tachycardia) Disposition: 01 HOME, SELF-CARE Condition: IMPROVED Referrals: PCP,FERMIN (PCP) MARTELL BARBOZA MD Patient Instructions: Supraventricular Tachycardia, [id number] Additional Instructions: Please take your previously prescribed medications as written. JAGJIT RIGGINS DO May 23, 2018 15:45
[2018-05-23 15:49] LABS: BASO # 0.1 x10^3/uL (0.0-0.2); BASO % 1 % (0-3); EOS # 0.1 x10^3/uL (0.0-0.7); EOS % 1 % (0-3); HEMATOCRIT 43.9 % (36.0-47.0); HEMOGLOBIN 14.6 g/dL (12.0-15.5); LYMPH # 3.5 x10^3/uL (1.0-4.8); LYMPH % 39 % (24-48); MEAN CORPUSCULAR HEMOGLOBIN 28 pg (25-35); MEAN CORPUSCULAR HGB CONC 33 g/dL (31-37); MEAN CORPUSCULAR VOLUME 85 fL (79-100); MONO # 0.6 x10^3/uL (0.0-1.1); MONO % 6 % (0-9); NEUT # 4.9 x10^3uL (1.8-7.7); NEUT % 53 % (31-73); PLATELET COUNT 274 x10^3/uL (140-400); WHITE BLOOD COUNT 9.2 x10^3/uL (4.0-11.0)
[2018-05-23 16:45] LABS: ALBUMIN 3.9 g/dL (3.4-5.0); CALCIUM 9.4 mg/dL (8.5-10.1); CREATININE 0.8 mg/dL (0.6-1.0); GFR 89.5; MAGNESIUM 1.8 mg/dL (1.8-2.4); POTASSIUM 3.6 mmol/L (3.5-5.1); TOTAL BILIRUBIN 0.3 mg/dL (0.2-1.0); TOTAL PROTEIN 7.9 g/dL (6.4-8.2)
[2018-05-23 17:40] VITALS: BP 182/118
--- NOTE | 2018-05-25 11:44 | EKG ---
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
--- NOTE | 2018-05-25 11:45 | EKG ---
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
== END 2018-05-23 17:40 | disposition home or self-care (01) ==
LOC: ER 15:12
DX: I47.1 Supraventricular tachycardia (principal); E11.9 Type 2 diabetes mellitus without complications; E78.00 Pure hypercholesterolemia, unspecified; I10 Essential (primary) hypertension
CPT/HCPCS: 36415; 80053; 82553; 83690; 83735; 83880; 84484; 85025; 85610; 85730; 93005; 99284; J7030

== ENCOUNTER 2018-10-10 16:24 | Emergency (ER) | payer SELFPAY ==
[~2018-10-10] VITALS: Ht 162.6 cm; Wt 65.8 kg
[2018-10-10] MEDS ORDERED: DIPH25CA58 PO (17:04)
[2018-10-10] MEDS ORDERED: SULF1TAB24 PO (17:04)
--- NOTE | 2018-10-10 17:04 | PHYS DOC ---
Past History Past Medical History: Diabetes, High Cholesterol, Hypertension Past Surgical History: Tubal ligation Smoking: Non-smoker Alcohol Use: Occasionally Drug Use: None Adult General Chief Complaint Chief Complaint: insect bite HPI HPI Patient is a 58-year-old female who presents with what she believes is an insect bite to her right lateral thigh. She states that initially it was just a small mom but it has grown in size and she states that it itches a lot. She does indicate that it is sore to touch. She denies any fever, chest pain or shortness of breath.[] Review of Systems Review of Systems Constitutional: Denies fever or chills [] Respiratory: Denies cough or shortness of breath [] Cardiovascular: No additional information not addressed in HPI [] Integument: Complains of skin lesion to right lateral thigh [] Allergies Allergies Allergies Coded Allergies Type Severity Reaction Last Updated Verified No Known Drug Allergies 05/23/18 No Physical Exam Physical Exam Constitutional: Well developed, well nourished, no acute distress, non-toxic appearance. [] Cardiovascular:Heart rate regular rhythm, no murmur [] Lungs & Thorax: Bilateral breath sounds clear to auscultation [] Skin: Right lateral thigh demonstrates approximately 2 x 4 cm area of soft tissue swelling, warmth and mild induration. [] Current Patient Data Vital Signs Vital Signs Date Time Temp Pulse Resp B/P (MAP) Pulse Ox O2 Delivery O2 Flow Rate FiO2 10/10/18 16:46 98.3 97 18 98 Room Air EKG EKG [] Radiology/Procedures Radiology/Procedures [] Course & Med Decision Making Course & Med Decision Making Pertinent Labs and Imaging studies reviewed. (See chart for details) [] Dragon Disclaimer Dragon Disclaimer This electronic medical record was generated, in whole or in part, using a voice recognition dictation system. Departure Departure: Impression: Primary Impression: Insect bite Disposition: 01 HOME, SELF-CARE Condition: STABLE Referrals: PCP,FERMIN (PCP) Patient Instructions: Insect Bite Scripts Diphenhydramine Hcl (BENADRYL) 25 Mg Capsule 25 MG PO Q4HRS PRN for ITCHING, #20 CAP Prov: BREONNA FUNES Jr. DO 10/10/18 Sulfamethoxazole/Trimethoprim (BACTRIM DS TABLET) 1 Each Tablet 1 TAB PO BID for infection, #20 TAB Prov: BREONNA FUNES Jr. DO 10/10/18 Problem Qualifiers Primary Impression: Insect bite Encounter type: initial encounter Site of insect bite: thigh Laterality: right Qualified Codes: S70.361A - Insect bite (nonvenomous), right thigh, initial encounter; W57.XXXA - Bitten or stung by nonvenomous insect and other nonvenomous arthropods, initial encounter BREONNA FUNES Jr., DO Oct 10, 2018 17:04
[2018-10-10 17:20] VITALS: BP 132/96
== END 2018-10-10 17:20 | disposition home or self-care (01) ==
LOC: ER 16:24
DX: S70.361A Insect bite (nonvenomous), right thigh, initial encounter (principal); E11.9 Type 2 diabetes mellitus without complications; E78.00 Pure hypercholesterolemia, unspecified; I10 Essential (primary) hypertension; W57.XXXA Bitten or stung by nonvenomous insect and other nonvenomous arthropods, initial encounter; Y93.89 Activity, other specified; Y92.89 Other specified places as the place of occurrence of the external cause; Y99.8 Other external cause status
CPT/HCPCS: 99283

== ENCOUNTER 2019-04-16 13:54 | Emergency (ER) | payer SELFPAY ==
[~2019-04-16 13:54] MED LIST changes: +DIPH25CA58 PO; +LISI1TAB20 PO; -LISI1TAB7 PO; +SULF1TAB24 PO
[2019-04-16 14:09] VITALS: BP 132/99
--- NOTE | 2019-04-16 14:21 | PHYS DOC ---
Past History Past Medical History: Diabetes, Hypertension Past Surgical History: Tubal ligation Smoking: Non-smoker Alcohol Use: Occasionally Drug Use: None Adult General Chief Complaint Chief Complaint: PELVIC PAIN HPI HPI 59-year-old female presents with change in vaginal discharge and mild, intermittent lower abdominal cramping. She has had the symptoms for about a month. The discomfort is consistent no injury to feel fatigued. She denies fever or chills. She denies any chance of STD as she is not sexually active. She has had UTIs in the past. She has no other complaints at this time. Review of Systems Review of Systems Constitutional: Denies fever or chills [] Eyes: Denies change in visual acuity, redness, or eye pain [] HENT: Denies nasal congestion or sore throat [] Respiratory: Denies cough or shortness of breath [] Cardiovascular: No additional information not addressed in HPI [] GI: Lower abdominal pain. Denies nausea, vomiting, bloody stools or diarrhea [] : brownish discharge [] Musculoskeletal: Denies back pain or joint pain [] Integument: Denies rash or skin lesions [] Neurologic: Denies headache, focal weakness or sensory changes [] Endocrine: Denies polyuria or polydipsia [] All other systems were reviewed and found to be within normal limits, except as documented in this note. Allergies Allergies Allergies Coded Allergies Type Severity Reaction Last Updated Verified No Known Drug Allergies 05/23/18 No Physical Exam Physical Exam Constitutional: Well developed, well nourished, no acute distress, non-toxic appearance. [] HENT: Normocephalic, atraumatic, bilateral external ears normal, oropharynx moist, no oral exudates, nose normal. [] Eyes: PERRLA, EOMI, conjunctiva normal, no discharge. [] Neck: Normal range of motion, no tenderness, supple, no stridor. [] Cardiovascular:Heart rate regular rhythm, no murmur [] Lungs & Thorax: Bilateral breath sounds clear to auscultation [] Abdomen: Bowel sounds normal, soft, no tenderness, no masses, no pulsatile masses. [] Skin: Warm, dry, no erythema, no rash. [] Back: No tenderness, no CVA tenderness. [] Extremities: No tenderness, no cyanosis, no clubbing, ROM intact, no edema. [] Neurologic: Alert and oriented X 3, normal motor function, normal sensory function, no focal deficits noted. [] Psychologic: Affect normal, judgement normal, mood normal. [] EKG EKG [] Radiology/Procedures Radiology/Procedures [] Course & Med Decision Making Course & Med Decision Making Pertinent Labs and Imaging studies reviewed. (See chart for details) The patient is urinalysis is negative for infection. The patient has elected to defer a pelvic exam and presents that she may have bacterial vaginosis. She would like to be treated empirically for this. She again stresses that she cannot have an STD because she is not sexually active. This is reasonable. I have ordered her 2 g of Flagyl. She is stable for discharge at this time. [] Dragon Disclaimer Dragon Disclaimer This electronic medical record was generated, in whole or in part, using a voice recognition dictation system. Departure Departure: Impression: Primary Impression: Bacterial vaginosis Disposition: HOME, SELF-CARE Condition: STABLE Referrals: PCP,NO (PCP) Patient Instructions: Bacterial Vaginosis, [id number] ANDREY DAVIS DO Apr 16, 2019 14:21
[2019-04-16 14:50] LABS: BILIRUBIN,URINE NEG (NEG); CLARITY,URINE CLEAR; COLOR,URINE YELLOW; GLUCOSE,URINE >=1000 mg/dL (NEG)
[2019-04-16 14:51] LABS: BACTERIA,URINE FEW /HPF (0-FEW); NITRITE,URINE NEG (NEG); RBC,URINE OCC /HPF (0-2); SQUAMOUS EPITHELIAL CELL,UR MANY /LPF; UROBILINOGEN,URINE 0.2 mg/dL (0.2 mg/dL); WBC,URINE OCC /HPF (0-4)
[2019-04-16] MEDS ORDERED: metroNIDAZOLE 500 MG TABLET PO ONE (15:15)
== END 2019-04-16 15:07 | disposition home or self-care (01) ==
LOC: ER 13:54
DX: N76.0 Acute vaginitis (principal); B96.89 Other specified bacterial agents as the cause of diseases classified elsewhere; E11.9 Type 2 diabetes mellitus without complications; I10 Essential (primary) hypertension; Z98.51 Tubal ligation status
CPT/HCPCS: 81001; 99283

== ENCOUNTER 2020-09-15 18:07 | Observation (INO) | payer OTHER ==
[~2020-09-15] VITALS: Ht 163.8 cm; Wt 63.4 kg
[~2020-09-15 18:07] MED LIST changes: +AMLO-186 PO; -AMLO5TAB10 PO; -ASPI-612 PO; +ASPI-889 PO; +MULT-445 PO; -MULT1TAB52 PO
[2020-09-15] MEDS ORDERED: ADENOSINE 6 MG/2 ML VIAL IV ONE (18:24)
[2020-09-15 18:59] LABS: BASO # 0.1 x10^3/uL (0.0-0.2); BASO % 1 % (0-3); EOS # 0.1 x10^3/uL (0.0-0.7); EOS % 1 % (0-3); HEMATOCRIT 42.8 % (36.0-47.0); HEMOGLOBIN 14.2 g/dL (12.0-15.5); LYMPH # 3.8 x10^3/uL (1.0-4.8); LYMPH % 38 % (24-48); MEAN CORPUSCULAR HEMOGLOBIN 28 pg (25-35); MEAN CORPUSCULAR HGB CONC 33 g/dL (31-37); MEAN CORPUSCULAR VOLUME 85 fL (79-100); MONO # 0.6 x10^3/uL (0.0-1.1); MONO % 6 % (0-9); NEUT # 5.3 x10^3uL (1.8-7.7); NEUT % 54 % (31-73); PLATELET COUNT 262 x10^3/uL (140-400); RED BLOOD COUNT 5.06 x10^6/uL (3.50-5.40); RED CELL DISTRIBUTION WIDTH 14.5 % (11.5-14.5); WHITE BLOOD COUNT 9.8 x10^3/uL (4.0-11.0)
[2020-09-15 19:01] LABS: CALCIUM 9.7 mg/dL (8.5-10.1); CREATININE 0.8 mg/dL (0.6-1.0); GFR 88.8; POTASSIUM 3.7 mmol/L (3.5-5.1)
--- NOTE | 2020-09-15 19:10 | PHYS DOC ---
Past History Past Medical History: Diabetes, Hypertension (LUISANA OLSEN APRN) Past Surgical History: No Surgical History (LUISANA OLSEN APRN) Smoking: Non-smoker Alcohol Use: Occasionally Drug Use: None (LUISANA OLSEN APRN) General Adult EDM: Chief Complaint: SHORTNESS OF BREATH HPI: HPI: Patient is a 60-year-old female who presents with shortness of breath and heart palpitations. Patient states that her symptoms started about an hour before she came to the emergency room. Patient states "I was just sitting around and suddenly started feeling my heart fluttering". "I have had this feeling before but it went away". Denies recent illness, fever, nausea/vomiting. Denies chest pain, dizziness.Patient denies having a PCP. Patient is seen by a free clinic for her blood pressure medication and insulin. (LUISANA OLSEN APRN) Review of Systems: Review of Systems: Constitutional: Denies fever or chills Eyes: Denies change in visual acuity HENT: Denies nasal congestion or sore throat Respiratory: Reports shortness of breath, denies cough Cardiovascular: Denies chest pain, reports heart palpitations GI: Denies abdominal pain, nausea, vomiting, bloody stools or diarrhea : Denies dysuria Musculoskeletal: Denies back pain or joint pain Integument: Denies rash Neurologic: Denies headache, focal weakness or sensory changes Endocrine: Denies polyuria or polydipsia Lymphatic: Denies swollen glands Psychiatric: Denies depression or anxiety (LUISANA OLSEN APRN) Current Medications: Current Meds: Current Medications Medications (Trade) Dose Ordered Sig/Jorden Start Time Stop Time Status Last Admin Dose Admin Adenosine (Adenocard) 6 mg STK-MED ONCE 09/15/20 18:24 09/15/20 18:24 DC (LUISANA OLSEN APRN) Allergies: Allergies: Allergies Coded Allergies Type Severity Reaction Last Updated Verified No Known Drug Allergies 05/23/18 No (LUISANA OLSEN APRN) Physical Exam: PE: Constitutional: Well developed, well nourished, no acute distress, non-toxic appearance. [] HENT: Normocephalic, atraumatic, bilateral external ears normal, oropharynx moist, no oral exudates, nose normal. [] Eyes: PERRLA, EOMI, conjunctiva normal, no discharge. [] Neck: Normal range of motion, no tenderness, supple, no stridor. [] Cardiovascular: Heart rhythm, SVT Lungs & Thorax: Bilateral breath sounds clear to auscultation [] Abdomen: Bowel sounds normal, soft, no tenderness, no masses, no pulsatile masses. [] Skin: Warm, dry, no erythema, no rash. [] Back: No tenderness, no CVA tenderness. [] Extremities: No tenderness, no cyanosis, no clubbing, ROM intact, no edema. [] Neurologic: Alert and oriented X 3, normal motor function, normal sensory function, no focal deficits noted. [] Psychologic: Affect normal, judgement normal, mood normal. [] (LUISANA OLSEN APRN) Current Patient Data: Labs: Laboratory Tests Test 09/15/20 18:25 09/15/20 18:28 White Blood Count 9.8 x10^3/uL (4.0-11.0) Red Blood Count 5.06 x10^6/uL (3.50-5.40) Hemoglobin 14.2 g/dL (12.0-15.5) Hematocrit 42.8 % (36.0-47.0) Mean Corpuscular Volume 85 fL (79-100) Mean Corpuscular Hemoglobin 28 pg (25-35) Mean Corpuscular Hemoglobin Concent 33 g/dL (31-37) Red Cell Distribution Width 14.5 % (11.5-14.5) Platelet Count 262 x10^3/uL (140-400) Neutrophils (%) (Auto) 54 % (31-73) Lymphocytes (%) (Auto) 38 % (24-48) Monocytes (%) (Auto) 6 % (0-9) Eosinophils (%) (Auto) 1 % (0-3) Basophils (%) (Auto) 1 % (0-3) Neutrophils # (Auto) 5.3 x10^3uL (1.8-7.7) Lymphocytes # (Auto) 3.8 x10^3/uL (1.0-4.8) Monocytes # (Auto) 0.6 x10^3/uL (0.0-1.1) Eosinophils # (Auto) 0.1 x10^3/uL (0.0-0.7) Basophils # (Auto) 0.1 x10^3/uL (0.0-0.2) Glucose (Fingerstick) 279 mg/dL (70-99) H Vital Signs: Vital Signs Date Time Temp Pulse Resp B/P (MAP) Pulse Ox O2 Delivery O2 Flow Rate FiO2 09/15/20 18:57 104 18 98 Room Air 09/15/20 18:43 98.7 164/101 (122) (LUISANA OLSEN APRN) EKG: EKG: @1815 SVT, heart rate 189 bpm @1844 sinus rhythm, heart rate 97 bpm [] (LUISANA OLSEN APRN) Radiology/Procedures: Radiology/Procedures: []Exam: Chest one view INDICATION: Shortness of breath TECHNIQUE: Frontal view of the chest Comparisons: 07/23/2017 FINDINGS: The cardiomediastinal silhouette and pulmonary vessels are within normal limits. The lung and pleural spaces are clear. IMPRESSION: No acute cardiopulmonary process. Electronically signed by: Elly Kim MD (09/15/2020 7:16 PM) NERIKARLA (LUISANA OLSEN APRN) Heart Score: C/O Chest Pain: No Risk Factors: Risk Factors: DM, Current or recent (<one month) smoker, HTN, HLP, family history of CAD, obesity. Risk Scores: Score 0 - 3: 2.5% MACE over next 6 weeks - Discharge Home Score 4 - 6: 20.3% MACE over next 6 weeks - Admit for Clinical Observation Score 7 - 10: 72.7% MACE over next 6 weeks - Early Invasive Strategies (LUISANA OLSEN APRN) Course & Med Decision Making: Course & Med Decision Making Pertinent Labs and Imaging studies reviewed. (See chart for details) [] 60-year-old female presents with shortness of breath and heart palpitations. Patient was in stable SVT when placed on the monitor. Patient attempted vagal maneuver, which was unsuccessful. Patient was given 6 of adenosine and converted back to normal sinus rhythm. Patient's blood sugar is elevated at 279. Patient reports that she takes Lantus only at night. 10 units of Lantus given. Lactic was 2.3. Patient given normal saline for hydration. Magnesium slightly elevated, 2 g of magnesium given. Patient given Cardizem. Spoke with Dr. Rivera who will be admitting patient to telemetry and having cardiology consult in the morning. Patient admitted for SVT. Explained admission plan to patient who is appreciative and in agreement. 60 minutes of critical care time with attending physician (LUISANA OLSEN APRN) Course & Med Decision Making Did not see or evaluate patient. Agree with TRADEMARK AFFIXER's work-up and disposition per note. (HAYLEY LAY MD) Dragon Disclaimer: Dragon Disclaimer: This electronic medical record was generated, in whole or in part, using a voice recognition dictation system. (LUISANA OLSEN APRN) Departure Departure: Impression: Primary Impression: SVT (supraventricular tachycardia) Disposition: ADMITTED INPATIENT Admitting Physician: Ajit Rivera (LUISANA OLSEN APRN) Condition: STABLE Referrals: PCP,NO (PCP) LUISANA OLSEN APRN Sep 15, 2020 19:10 HAYLEY LAY MD Sep 16, 2020 00:36
[2020-09-15 19:18] LABS: MAGNESIUM 1.6 mg/dL (1.8-2.4); TOTAL BILIRUBIN 0.4 mg/dL (0.2-1.0); TOTAL PROTEIN 8.2 g/dL (6.4-8.2)
--- NOTE | 2020-09-15 19:18 | RAD ---
Exam: Chest one view INDICATION: Shortness of breath TECHNIQUE: Frontal view of the chest Comparisons: 07/23/2017 FINDINGS: The cardiomediastinal silhouette and pulmonary vessels are within normal limits. The lung and pleural spaces are clear. IMPRESSION: No acute cardiopulmonary process. Electronically signed by: Elly Kim MD (09/15/2020 7:16 PM) ERWIN
--- NOTE | 2020-09-15 20:02 | EKG ---
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
[2020-09-15 20:39] LABS: BILIRUBIN,URINE NEG (NEG); CLARITY,URINE CLEAR; COLOR,URINE YELLOW; GLUCOSE,URINE >=1000 mg/dL (NEG)
[2020-09-15 20:40] LABS: NITRITE,URINE NEG (NEG); UROBILINOGEN,URINE 0.2 mg/dL (0.2 mg/dL)
[2020-09-15 20:41] LABS: BACTERIA,URINE 0 /HPF (0-FEW); RBC,URINE 0 /HPF (0-2); SQUAMOUS EPITHELIAL CELL,UR OCC /LPF; WBC,URINE 0 /HPF (0-4)
--- NOTE | 2020-09-15 20:51 | EKG ---
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
[2020-09-15 20:53] LABS: U PREG PATIENT NEGATIVE (NEG)
[2020-09-15] MEDS ORDERED: dilTIAZem HCL 30 MG TABLET PO ONE (21:15)
[2020-09-15] MEDS ORDERED: MAGNESIUM SULFATE 2GM 50 ML IV ONE (21:15)
[2020-09-15] MEDS ORDERED: IV NORMAL SALINE 1,000ML 1,000 ML IV ONE (21:15)
[2020-09-15] MEDS ORDERED: INSULIN GLARGINE SYRINGE. SQ ONE (21:30)
[2020-09-15 23:31] VITALS: BP 172/94
[2020-09-16 01:38] VITALS: BP 210/123
[2020-09-16] MEDS ORDERED: LISINOPRIL 20 MG TABLET PO ONE (01:45)
[2020-09-16 02:59] VITALS: BP 151/82
[2020-09-16 05:28] VITALS: BP 154/94
[2020-09-16 08:13] VITALS: BP 154/94
[2020-09-16] MEDS ORDERED: LISINOPRIL 20 MG TABLET PO SCH (09:00)
[2020-09-16] MEDS ORDERED: FLECAINIDE ACETATE PO SCH (09:00)
[2020-09-16] MEDS ORDERED: NON FORMULARY ITEM (Multivitamin (Multivitamins) 1 TAB) PO SCH (09:00)
[2020-09-16] MEDS ORDERED: ASPIRIN CHEWABLE 81 MG TABLET. PO SCH (09:00)
[2020-09-16] MEDS ORDERED: NON FORMULARY ITEM (Metformin Hcl 1 TAB) PO SCH (09:00)
[2020-09-16] MEDS ORDERED: NON FORMULARY ITEM (Lisinopril/Hydrochlorothiazide (Lisinopril-Hctz 20-25 Mg Tab) 1 TAB) PO SCH (09:00)
[2020-09-16] MEDS ORDERED: SITAGLIPTIN PHOSPHATE 25 MG PO SCH (09:00)
[2020-09-16] MEDS ORDERED: NON FORMULARY ITEM (Ascorbic Acid (Vitamin C) 500 MG) PO SCH (09:00)
[2020-09-16] MEDS ORDERED: ATORVASTATIN CALCIUM 10 MG TABLET. PO SCH (09:00)
[2020-09-16] MEDS ORDERED: GABAPENTIN 100 MG CAPSULE. PO SCH ×2 (09:00)
[2020-09-16] MEDS ORDERED: ASPIRIN ENTERIC COATED 81 MG TABLET.DR. PO SCH (09:00)
[2020-09-16] MEDS ORDERED: INSU100I13 SQ (09:09)
[2020-09-16] MEDS ORDERED: POLY17PO5 PO (09:09)
[2020-09-16] MEDS ORDERED: AMLO-186 PO (09:09)
--- NOTE | 2020-09-16 11:11 | HP ---
ATTENDING PHYSICIAN: Dr. Rivera. CHIEF COMPLAINT: Shortness of breath. HISTORY OF PRESENT ILLNESS: The patient is a 60-year-old female admitted through the ED with shortness of breath, palpitations and an episode of supraventricular tachycardia treated. Her blood pressure is very labile in the excess of 200 mmHg systolic. She had been a smoker in the past. She denies any recreational drug use. She does drink moderately and to excess sometimes. She does not have a local PCP. She has a history of diabetes. Sugars are elevated in the mid 200s. She has been noncompliant on her meds. In talking with her, unfortunately, she also suffers from a very poor social situation. She is on disability with limited income of $700 a month. She admits to being illiterate. She cannot read and she has very little insight. She lives alone. There are some other friends who are alcoholics. They are not a good influence on her. She is admitted then for further treatment and evaluation and management of blood pressure. PAST MEDICAL HISTORY: Significant for diabetes; essential hypertension, no meds. She has no local physician. She gets her care sporadically. There is no history of heart attacks or strokes. CURRENT MEDICATIONS: None in the past. She has taken metformin and various cardiac meds and blood pressure meds including metoprolol. ALLERGIES: She has no known drug allergies. SOCIAL HISTORY: She denies any smoking use, she quit 10 years ago. She adamantly denies recreational drug use. I did ask her twice. She admits to drinking alcohol on a regular basis. PAST SURGICAL HISTORY: None. FAMILY HISTORY: Mom of complication of lung cancer at age 72. Father of complications of heart disease and stroke at age 75. REVIEW OF SYSTEMS: Significant for the problems that brought her in. All other systems reviewed and turned to be negative. PHYSICAL EXAMINATION: GENERAL: When I saw her, this is a pleasant young female. VITAL SIGNS: Initial vital signs showed a blood pressure 210/123 on admission. The next morning when I saw her, it was down to 154/94. Her pulse rate was 73 and regular, oxygen saturation 98% on room air. She was afebrile. HEENT: Head is without trauma. Pupils are reactive. Sclerae nonicteric. The oropharynx is clear. NECK: Supple, no bruits. LUNGS: Hyperdynamic precordium. No gallops. ABDOMEN: Soft. EXTREMITIES: Show no edema. NEUROLOGIC: Finding focally intact. Speech is fluent. Loading Unit Operator intact. Chest x-ray on admission was clear. LABORATORY STUDIES: Nonfasting blood sugar was 279. Electrolytes were within normal range. Her hemoglobin was 14.2 g/dL with a white count of 9800. Her serum creatinine was 0.8 mg percent and normal electrolytes. Hemoglobin A1c was measured at 12.3. ASSESSMENT: 1. A 60-year-old female with labile hypertension. 2. Noncompliance. 3. Poorly controlled diabetes mellitus. PLAN: 1. Observation status. 2. Restart blood pressure meds. 3. Restart metformin. 4. Serial cardiac enzymes. ISA/CHARLES DR: Mary TID: [id number]
--- NOTE | 2020-09-16 13:47 | DS ---
ATTENDING PHYSICIAN: Dr. Rivera FINAL DISCHARGE DIAGNOSES: 1. Labile hypertension. 2. Chronic alcoholism. 3. Uncontrolled diabetes type 2. 4. Noncompliance of medications. 5. Very poor social situation on top of the fact the patient is illiterate. 6. Cardiac arrhythmia, resolved. HISTORY AND PHYSICAL: The patient is a 60-year-old female with significant social issues. She is diabetic and hypertensive. She has been on medicines in the past. She has not sought any medical care. She has limited resources. She is on disability with limited funds every month. Unfortunately, she is also illiterate and has no insight into her condition. She was admitted to the ED for further evaluation. She had an episode of tachyarrhythmia, given a dose of Adenocard. She has not had any arrhythmia since. Her hemoglobin A1c was elevated and blood pressure markedly elevated. PHYSICAL EXAMINATION: Please see my dictated note. PERTINENT LABORATORY AND X-RAY STUDIES: Admission blood sugar was 279. Lactic acid was adequate. Troponins were negative. Electrolytes within normal range. Hemoglobin, CBC, white count were normal. Hemoglobin A1c was 12.9. Blood pressure initially was in the 200 range, it came down to 150/90 by the time we treated her. COURSE IN THE HOSPITAL: The patient was admitted, enzymes were negative for coronary ischemia. She felt better. She did not want to stay in the hospital. At this time, she has no primary care physician. I gave her the names of several local numbers. I wrote her scripts for lisinopril 40 mg p.o. daily, Tenormin 50 mg p.o. daily and metformin 1000 mg b.i.d., enough for a month with 3 refills. Strong encouragement to avoid further alcohol use, whether or not she will quit drinking remains to be seen. In addition, I suggest a followup visit to recheck blood pressure and blood sugars in 2 weeks' time, whether or not she will make the appointment is up to her. She was discharged then from our hospital in stable condition with explicit written and followup care. ISA/MARCEL/KUSH DR: Mary TID: [id number]
[2020-09-16] MEDS ORDERED: INSULIN GLARGINE HUM REC ANLOG 5 UNIT SQ SCH (21:00)
== END 2020-09-16 12:08 | disposition home or self-care (01) ==
LOC: ER 18:07 → 1 SOUTH 23:30 → INTOOBSV 23:30
PROVIDERS: ADMIT Hospitalist; ATTEND Hospitalist
DX: I10 Essential (primary) hypertension (principal); F10.20 Alcohol dependence, uncomplicated; E11.65 Type 2 diabetes mellitus with hyperglycemia; I49.9 Cardiac arrhythmia, unspecified; I47.1 Supraventricular tachycardia; Z79.84 Long term (current) use of oral hypoglycemic drugs; Z79.899 Other long term (current) drug therapy; Z87.891 Personal history of nicotine dependence; Z91.19 Patient's noncompliance with other medical treatment and regimen
CPT/HCPCS: 36415; 71045; 80053; 81001; 81025; 82553; 82803; 82947; 83605; 83735; 83880; 84443; 84484; 85025; 85610; 85730; 93005; 96365; 96366; 99291; G0378; J1815; J3475; G0379